=== PATIENT | female | born 1965 | race Caucasian/White ===

== ENCOUNTER 2019-01-30 19:41 | Emergency (ER) | payer SELFPAY ==
[2019-01-30] MEDS ORDERED: Alum Hydrox/Mag Hydrox/Simeth 30 ML, Lidocaine 2% 15 ML PO STA ×2 (19:46)
[2019-01-30] MEDS ORDERED: Ondansetron 4 MG/2 ML SDV IVPUSH ONE (19:47)
[2019-01-30] MEDS ORDERED: HYDROmorphone 0.5 MG/0.5 ML Syringe IVPUSH ONE (19:47)
[2019-01-30] MEDS ORDERED: Aspirin 81 MG Tab.Chew PO ONE (19:50)
--- NOTE | 2019-01-30 19:57 | EDM.PDOC ---
ED HPI GENERAL MEDICAL PROBLEM - General Chief Complaint: Cardiovascular Problem Stated Complaint: [facility] Time Seen by Provider: 01/30/19 19:44 Source of Information: Reports: Patient, EMS History Limitations: Reports: No Limitations - History of Present Illness INITIAL COMMENTS - FREE TEXT/NARRATIVE: Report from EMS in the field was that the patient was likely having a STEMI, with ST elevations in multiple leads, in and out of consciousness, and they could not get a blood pressure. Upon arrival to the ED, EMS informed me that the patient likely developed chest pain about 2 hours prior, that she had collapsed on the bathroom floor, where she was found by her , and where she was still lying when they arrived. Initial oxygen saturation was 94-95% on room air, but they placed a nonrebreather mask. They were unable to get a blood pressure initially, but her blood pressure was 56/P en route, and 98/P just prior to arrival to the ED. 2 IVs were placed, and she was given IV fluid. They did not give aspirin, because she does not have teeth him a and they did not give nitroglycerin, because there ECG indicated an inferior wall MS. They did not give fentanyl due to the patient's low blood pressure. Upon arrival to the ED, the patient was awake, but appeared anxious. Her initial BP was 135/106, with a HR of 84. The nonrebreather mask was removed, and her oxygen saturation remained at 100%. She reported a "heavy" pain in her epigastrium. She stated that she had had similar pain in 2014, while in [place], and was told that she had had a "small heart attack", based on an ECG and a heart enzyme, but that she refused to undergo a coronary angiogram, citing lack of insurance. She states that she has a history of hypertension, but does not take any medication for it. She denies any other chronic medical problems. She is a committed smoker. No recent illnesses. The patient does not have a PCP. She did not receive an influenza vaccine this season. Treatments ENROBER TENDER: Reports: EKG, Oxygen Middle Chest Pain Score (Numeric/FACES): 10 - Related Data Allergies Allergy/AdvReac Type Severity Reaction Status Date / Time Penicillins Allergy Swelling Verified 01/30/19 19:48 Past Medical History Cardiovascular History: Reports: CAD, Hypertension (untreated), [place] (2015) Endocrine/Metabolic History: Reports: Obesity/BMI 30+ - Past Surgical History HEENT Surgical History: Reports: Oral Surgery (Dental extractions) GI Surgical History: Reports: Appendectomy Female Surgical History: Reports: Hysterectomy (complete) Musculoskeletal Surgical History: Reports: Other (See Below) (Right thumb repair ) Social & Family History - Tobacco Use Smoking Status *Q: Current Every Day Smoker Years of Tobacco use: 37 Packs/Tins Daily: 1 Packs/Tins Daily Comment: Down from > 1.5 ppd - Alcohol Use Alcohol Use History: No - Recreational Drug Use Recreational Drug Use: No - Living Situation & Occupation Living situation: Reports: , with Spouse Occupation: Unemployed ED ROS GENERAL - Review of Systems Review Of Systems: Comprehensive ROS is negative, except as noted in HPI. ED EXAM, GENERAL - Physical Exam Exam: See Below Exam Limited By: No Limitations General Appearance: Alert, WD/WN, Anxious Eye Exam: Bilateral Eye: EOMI, Normal Inspection Ears: Normal External Exam, Hearing Grossly Normal Nose: Normal Inspection Throat/Mouth: Normal Inspection, Normal Lips, Normal Voice, No Airway Compromise Head: Atraumatic, Normocephalic Neck: Normal Inspection, Full Range of Motion Respiratory/Chest: No Respiratory Distress, Lungs Clear, Normal Breath Sounds, No Accessory Muscle Use, Chest Non-Tender (including in the epuigastrium) Cardiovascular: Normal Peripheral Pulses, Regular Rate, Rhythm, No Edema, No Gallop, No JVD, No Murmur, No Rub Peripheral Pulses: 4+: Radial (L), Radial (R) GI/Abdominal: Normal Bowel Sounds, Soft, Non-Tender, No Organomegaly, No Distention, No Abnormal Bruit, No Mass (Female) Exam: Deferred Rectal (Female) Exam: Deferred Back Exam: Normal Inspection, Full Range of Motion, NT Extremities: Normal Inspection, Normal Range of Motion, No Pedal Edema, Normal Capillary Refill Neurological: Alert, Oriented, Normal Cognition, No Motor/Sensory Deficits Psychiatric: Anxious Skin Exam: Warm, Dry, Intact, Normal Color, No Rash EKG INTERPRETATION EKG Date: 01/30/19 Time: 19:37 Rhythm: NSR Rate (Beats/Min): 80 [place]: Normal P-Wave: Present QRS: Normal ST-T: Normal QT: Prolonged (QTc 545 ms) Comparison: NA - No Prior EKG Course - Vital Signs Last Recorded V/S: Last Vital Signs Temp 36.2 C 01/30/19 19:42 Pulse 74 01/30/19 22:32 Resp 16 01/30/19 19:42 BP 154/67 H 01/30/19 22:32 Pulse Ox 100 01/30/19 19:42 - Orders/Labs/Meds Orders: Active Orders 24 hr Category Date Time Status EKG Documentation Completion [RC] STAT Care 01/30/19 19:45 Active Ang Chest [CT] Stat Exams 01/30/19 21:18 Taken Chest 1V Frontal [CR] Stat Exams 01/30/19 19:45 Taken Heparin Sodium/D5W [Heparin 25,000 Units in D5W 500 ML] Med 01/30/19 20:45 Active 25,000 units in 500 ml IV TITRATE Sodium Chloride 0.9% [Normal Saline] 1,000 ml Med 01/30/19 21:30 Active IV ASDIRECTED Medication Orders Heparin Sodium/Dextrose (Heparin 25,000 Units In D5w 500 Ml) 25,000 units in 500 mls @ 17.4 mls/hr IV TITRATE MARII; Protocol Last Admin: 01/30/19 20:54 Dose: 870 units/hr, 17.4 mls/hr Sodium Chloride (Normal Saline) 1,000 mls @ 100 mls/hr IV ASDIRECTED MARII Last Admin: 01/30/19 21:26 Dose: 100 mls/hr Labs: Laboratory Tests 01/30/19 01/30/19 01/30/19 Range/Units 19:54 19:54 19:54 WBC 20.46 H (3.98-10.04) K/mm3 RBC 3.78 L (3.98-5.22) M/mm3 Hgb 12.2 (11.2-15.7) gm/dl Hct 38.2 (34.1-44.9) % MCV 101.1 H (79.4-94.8) fl MCH 32.3 H (25.6-32.2) pg MCHC 31.9 L (32.2-35.5) g/dl RDW Std Deviation 50.8 H (36.4-46.3) fL Plt Count 473 H (182-369) K/mm3 MPV 7.9 L (9.4-12.3) fl Neutrophils % (Manual) 74 H (40-60) % Band Neutrophils % 1 (0-10) % Lymphocytes % (Manual) 22 (20-40) % Atypical Lymphs % 0 % Monocytes % (Manual) 3 (2-10) % Eosinophils % (Manual) 0 L (0.7-5.8) % Basophils % (Manual) 0 L (0.1-1.2) Platelet Estimate Adequate Anisocytosis 1+ slight Macrocytosis 1+ slight RBC Morph Comment Not Reportable D-Dimer, Quantitative (0.19-0.50) mg/L Sodium 139 (136-145) mEq/L Potassium 3.3 L (3.5-5.1) mEq/L Chloride 104 (98-107) mEq/L Carbon Dioxide 19 L (21-32) mEq/L Anion Gap 19.3 H (5-15) BUN 10 (7-18) mg/dL Creatinine 1.0 (0.55-1.02) mg/dL Est Cr Clr Drug Dosing 46.19 mL/min Estimated GFR (MDRD) 58 (>60) mL/min BUN/Creatinine Ratio 10.0 L (14-18) Glucose 132 H (74-106) mg/dL Calcium 8.8 (8.5-10.1) mg/dL Magnesium 1.9 (1.8-2.4) mg/dl Total Bilirubin 0.1 L (0.2-1.0) mg/dL AST 41 H (15-37) U/L ALT 37 (14-59) U/L Alkaline Phosphatase 115 (46-116) U/L Troponin I 2.305 H* (0.00-0.056) ng/mL NT-Pro-B Natriuret Pep 286 H (0-125) pg/mL Total Protein 7.9 (6.4-8.2) g/dl Albumin 3.8 (3.4-5.0) g/dl Globulin 4.1 gm/dL Albumin/Globulin Ratio 0.9 L (1-2) Lipase 124 (73-393) U/L 01/30/19 Range/Units 20:35 WBC (3.98-10.04) K/mm3 RBC (3.98-5.22) M/mm3 Hgb (11.2-15.7) gm/dl Hct (34.1-44.9) % MCV (79.4-94.8) fl MCH (25.6-32.2) pg MCHC (32.2-35.5) g/dl RDW Std Deviation (36.4-46.3) fL Plt Count (182-369) K/mm3 MPV (9.4-12.3) fl Neutrophils % (Manual) (40-60) % Band Neutrophils % (0-10) % Lymphocytes % (Manual) (20-40) % Atypical Lymphs % % Monocytes % (Manual) (2-10) % Eosinophils % (Manual) (0.7-5.8) % Basophils % (Manual) (0.1-1.2) Platelet Estimate Anisocytosis Macrocytosis RBC Morph Comment D-Dimer, Quantitative 3.54 H (0.19-0.50) mg/L Sodium (136-145) mEq/L Potassium (3.5-5.1) mEq/L Chloride (98-107) mEq/L Carbon Dioxide (21-32) mEq/L Anion Gap (5-15) BUN (7-18) mg/dL Creatinine (0.55-1.02) mg/dL Est Cr Clr Drug Dosing mL/min Estimated GFR (MDRD) (>60) mL/min BUN/Creatinine Ratio (14-18) Glucose (74-106) mg/dL Calcium (8.5-10.1) mg/dL Magnesium (1.8-2.4) mg/dl Total Bilirubin (0.2-1.0) mg/dL AST (15-37) U/L ALT (14-59) U/L Alkaline Phosphatase (46-116) U/L Troponin I (0.00-0.056) ng/mL NT-Pro-B Natriuret Pep (0-125) pg/mL Total Protein (6.4-8.2) g/dl Albumin (3.4-5.0) g/dl Globulin gm/dL Albumin/Globulin Ratio (1-2) Lipase (73-393) U/L Meds: Medications Generic Name Dose Route Start Last Admin Trade Name Freq PRN Reason Stop Dose Admin Heparin Sodium/Dextrose 25,000 units in 500 mls @ 17.4 mls/hr 01/30/19 20:45 01/30/19 20:54 Heparin 25,000 Units In D5w 500 Ml IV 870 units/hr TITRATE MARII 17.4 mls/hr Administration Protocol 870 UNITS/HR Sodium Chloride 1,000 mls @ 100 mls/hr 01/30/19 21:30 01/30/19 21:26 Normal Saline IV 100 mls/hr ASDIRECTED MARII Administration Discontinued Medications Generic Name Dose Route Start Last Admin Trade Name Vinod PRN Reason Stop Dose Admin Aspirin 324 mg 01/30/19 19:50 01/30/19 19:52 Aspirin PO 01/30/19 19:51 324 mg ONETIME ONE Administration Al Hydroxide/Mg Hydroxide 30 0 ml 01/30/19 19:46 01/30/19 19:51 ml/ Lidocaine HCl 15 ml PO 01/30/19 19:47 45 ml ONETIME STA Administration Heparin Sodium (Porcine) 4,000 units 01/30/19 20:40 01/30/19 20:53 Heparin Sodium IVPUSH 01/30/19 20:41 4,000 units .BOLUS STA Administration Hydromorphone HCl 0.5 mg 01/30/19 19:47 01/30/19 20:05 Dilaudid IVPUSH 01/30/19 19:48 0.5 mg ONETIME ONE Administration Sodium Chloride 100 mls @ 4 mls/sec 01/30/19 21:48 01/30/19 22:30 Normal Saline IV 01/30/19 21:49 4 mls/sec ONETIME ONE Administration Iopamidol 100 ml 01/30/19 21:48 01/30/19 22:30 Isovue-370 (76%) IVPUSH 01/30/19 21:49 100 ml ONETIME ONE Administration Metoprolol Tartrate 5 mg 01/30/19 20:39 01/30/19 20:51 Lopressor IVPUSH 01/30/19 20:40 5 mg ONETIME ONE Administration Metoprolol Tartrate 5 mg 01/30/19 21:10 01/30/19 21:16 Lopressor IVPUSH 01/30/19 21:11 5 mg ONETIME ONE Administration Metoprolol Tartrate 5 mg 01/30/19 22:24 01/30/19 22:32 Lopressor IVPUSH 01/30/19 22:25 5 mg ONETIME ONE Administration Ondansetron HCl 4 mg 01/30/19 19:47 01/30/19 19:51 Zofran IVPUSH 01/30/19 19:48 4 mg ONETIME ONE Administration - Re-Assessments/Exams Free Text/Narrative Re-Assessment/Exam: 01/30/19 20:36 The etiology of the patient's pain is unclear. She is indicating pain in her epigastric area, therefore I ordered a GI cocktail, to be followed by IV Dilaudid and IV Zofran. I am told that the GI cocktail had no effect on the patient's pain. The patient's ECG here in the ED does not show evidence for an acute MS, however , I was just presented with the ECG tracings from EMS, which do in fact show ST elevations in the inferior leads. 01/30/19 20:38 Notified that the patient's troponin is elevated at 2.305, consistent with a recent MS. The patient already received 4 baby aspirin; I will order 5 mg of IV Lopressor and start a heparin bolus + drip per non-STEMI protocol. Portable chest radiograph appears to be grossly normal. The cardiac silhouette is within normal limits. No pulmonary vascular congestion. No pleural effusions seen on this AP view. No focal infiltrate. No pneumothorax. Formal read per the Radiologist pending. 01/30/19 20:50 Test results discussed with the patient and her . She looks much better, and states that she feels much better, as well. I would like to transfer the patient to [place] for further evaluation. They have no preference of [facility] versus [facility]. 01/30/19 21:07 Case discussed with Isabella at [facility] at 20:53. The portable chest XRay image was pushed while I was discussing the case with Isabella. Case then discussed with Dr. Richardson, Hospitalist at [facility], at 20: 55. She wanted the [employer] involved. Dr. Washington, [facility] at [facility], added to the conversation at 21: 00. He agreed with the Lopressor and heparin. He suggested adding a nitroglycerin drip, if needed to control the patient's blood pressure. Since the patient is pain-free, he did not expect that she will go to the crime laboratory analyst tonight, therefore he was okay with the patient being transferred by ground ambulance. I would like to give the patient 3 doses of Lopressor 5 mg, to see if that controls patient's blood pressure, prior to starting a nitroglycerin drip. 01/30/19 21:20 The patient's D-dimer has returned substantially elevated at 3.54. It is possible that the patient suffered a PE, causing her earlier symptoms, and an elevated troponin due to right heart strain. I believe it is important that we rule out a PE prior to transferring her to [place], therefore I have ordered a stat CT angiogram of the chest, along with IV fluid. 01/30/19 22:34 CT angiogram of the chest is read by [facility] as: 1. No evidence for pulmonary emboli 2. Incidental note was made of a 2.2 centimeter left adrenal adenoma Following 3 doses of IV Lopressor 5 mg, the patient's most recent BP is 154/67, with a HR of 74. The patient can be transported by ground ambulance without a nitroglycerin drip. Departure - Departure Time of Disposition: 21:09 Disposition: DC/Tfer to Acute Hospital 02 Condition: Fair Clinical Impression: Non-STEMI (non-ST elevated myocardial infarction) - Discharge Information *PRESCRIPTION DRUG MONITORING PROGRAM REVIEWED*: Not Applicable *COPY OF PRESCRIPTION DRUG MONITORING REPORT IN PATIENT LEIGH: Not Applicable Referrals: PCP,Unknown [Ordering Only Provider] - Forms: ED Department Discharge - My Orders Last 24 Hours: My Active Orders 01/30/19 19:45 EKG Documentation Completion [RC] STAT Chest 1V Frontal [CR] Stat 01/30/19 20:45 Heparin Sodium/D5W [Heparin 25,000 Units in D5W 500 ML] 25,000 units in 500 ml IV TITRATE 01/30/19 21:18 Ang Chest [CT] Stat 01/30/19 21:30 Sodium Chloride 0.9% [Normal Saline] 1,000 ml IV ASDIRECTED - Assessment/Plan Last 24 Hours: My Active Orders 01/30/19 19:45 EKG Documentation Completion [RC] STAT Chest 1V Frontal [CR] Stat 01/30/19 20:45 Heparin Sodium/D5W [Heparin 25,000 Units in D5W 500 ML] 25,000 units in 500 ml IV TITRATE 01/30/19 21:18 Ang Chest [CT] Stat 01/30/19 21:30 Sodium Chloride 0.9% [Normal Saline] 1,000 ml IV ASDIRECTED
[2019-01-30] MEDS ORDERED: Metoprolol Tartrate 5 MG/5 ML SDV IVPUSH ONE ×3 (20:39→22:24)
[2019-01-30] MEDS ORDERED: Heparin Sodium 5,000 Units/ML Vial IVPUSH STA (20:40)
[2019-01-30] MEDS ORDERED: Heparin Sodium/D5W 25,000 UNITS/500 ML BAG IV SCH (20:45)
[2019-01-30] MEDS ORDERED: Sodium Chloride 0.9% 1,000 ML IV SCH (21:30)
[2019-01-30] MEDS ORDERED: Sodium Chloride 0.9% 100 ML IV ONE (21:48)
[2019-01-30] MEDS ORDERED: Iopamidol 755 Mg/ML 100 ML Bottle IVPUSH ONE (21:48)
--- NOTE | 2019-01-31 08:56 | CR ---
Chest: Portable view of the chest was obtained. Comparison: Prior chest x-ray is not available. Heart is felt to be slightly enlarged although is accentuated from portable technique. Pulmonary vessels are slightly congested which are asymmetrically worse on the right side. No alveolar type densities are seen. Bony structures are grossly intact. Impression: 1. Findings suggestive of mild CHF. PA and lateral view would confirm if clinically needed. Diagnostic code #3 This report was dictated in [place] Standard Time
--- NOTE | 2019-01-31 08:57 | CT ---
CT chest Technique: Multiple axial sections through the chest were obtained. Intravenous contrast was utilized. Study has been performed as a pulmonary angiogram protocol. Comparison: No prior CT chest, chest x-ray performed earlier on same day (7:47 PM). Findings: Pulmonary arteries are well opacified. No filling defects are seen to indicate pulmonary embolism. Aorta shows no aneurysm. Mediastinum shows no adenopathy. Prominent atherosclerotic change is noted within the coronary arteries. No pericardial thickening is seen. Low density lesion is noted within the left adrenal gland measuring approximately 2.0 cm which is felt compatible with an incidental adrenal adenoma. Other visualized upper abdominal structures show no discrete abnormality other than atherosclerotic change within the abdominal aorta. Lungs are clear. No acute parenchymal change is seen. No pleural effusion is seen. Bone window settings were reviewed which show minimal degenerative change scattered within the spine. Impression: 1. No findings of pulmonary embolism. 2. Prominent atherosclerotic change within the coronary arteries. 3. Other findings as noted above. Nothing acute is otherwise seen. Diagnostic code #3 This report was dictated in [place] Standard Time I agree with preliminary report from [facility], finalized on 01/30/19, 11:24 PM Central Time
== END 2019-01-30 23:02 ==
LOC: JD.ED 19:41
DX: I21.4 Non-ST elevation (NSTEMI) myocardial infarction (principal); I25.10 Atherosclerotic heart disease of native coronary artery without angina pectoris; I10 Essential (primary) hypertension; F17.210 Nicotine dependence, cigarettes, uncomplicated; E66.9 Obesity, unspecified; Z68.31 Body mass index [BMI] 31.0-31.9, adult
CPT/HCPCS: 36415; 71045; 71275; 80053; 83690; 83735; 83880; 84484; 85007; 85027; 85379; 93005; 96365; 96366; 96375; 96376; 99285; A9270; J1170; J1644; J2405; J3490; J7030; J7050; Q9967; 93010

== ENCOUNTER 2019-02-04 06:56 | Emergency (ER) | payer SELFPAY ==
[2019-02-04] MEDS ORDERED: Oxymetazoline 0.05% Nasal Spray 30 ML Bottle NAS ONE (07:25)
--- NOTE | 2019-02-04 07:43 | EDM.PDOC ---
ED HPI GENERAL MEDICAL PROBLEM - General Chief Complaint: ENT Problem Stated Complaint: NOSEBLEED Time Seen by Provider: 02/04/19 07:34 Source of Information: Reports: Patient History Limitations: Reports: No Limitations - History of Present Illness INITIAL COMMENTS - FREE TEXT/NARRATIVE: Patient is a 53-year-old female who presents with complaints of a left-sided epistaxis that started at approximately 2:30 this morning. She states that the bleeding will slow down intermittently but that she passes large clots. Patient was recently started on Effient and aspirin for a stent that was placed. She is also on metoprolol 12.5mg BID and Lisinopril 5mg QD for hypertension. Patient denies history of bleeding disorders. - Related Data Allergies Allergy/AdvReac Type Severity Reaction Status Date / Time Penicillins Allergy Swelling Verified 02/04/19 07:46 Home Meds: Home Meds Aspirin [Ecotrin EC] 81 mg PO DAILY 02/04/19 [History] Cyanocobalamin (Vitamin B-12) [Vitamin B-12] 1 tab PO DAILY 02/04/19 [History] Lisinopril [Prinivil] 5 mg PO DAILY 02/04/19 [History] Metoprolol Tartrate 12.5 mg PO BID 02/04/19 [History] Prasugrel HCl [Effient] 10 mg PO DAILY 02/04/19 [History] atorvaSTATin Calcium [Lipitor] 40 mg PO DAILY 02/04/19 [History] Past Medical History Cardiovascular History: Reports: CAD, Hypertension (untreated), [place] (2015) Endocrine/Metabolic History: Reports: Obesity/BMI 30+ - Past Surgical History HEENT Surgical History: Reports: Oral Surgery (Dental extractions) GI Surgical History: Reports: Appendectomy Female Surgical History: Reports: Hysterectomy (complete) Musculoskeletal Surgical History: Reports: Other (See Below) (Right thumb repair ) Social & Family History - Caffeine Use Caffeine Use: Reports: Soda - Living Situation & Occupation Living situation: Reports: , with Spouse Occupation: Unemployed ED ROS ENT - Review of Systems Review Of Systems: See Below Constitutional: Reports: No Symptoms HEENT: Reports: Nosebleed Respiratory: Reports: No Symptoms Cardiovascular: Reports: No Symptoms Endocrine: Reports: No Symptoms GI/Abdominal: Reports: No Symptoms : Reports: No Symptoms Musculoskeletal: Reports: No Symptoms Skin: Reports: No Symptoms Neurological: Reports: No Symptoms Psychiatric: Reports: No Symptoms Hematologic/Lymphatic: Reports: No Symptoms Immunologic: Reports: No Symptoms ED EXAM, ENT - Physical Exam Exam: See Below Exam Limited By: No Limitations General Appearance: Alert, WD/WN, No Apparent Distress Nose: Active Bleeding (left nare) Respiratory/Chest: No Respiratory Distress, Lungs Clear, Normal Breath Sounds, Chest Non-Tender Cardiovascular: Normal Peripheral Pulses, Regular Rate, Rhythm, No Edema, No Murmur Neurological: Alert, Oriented, Normal Cognition Psychiatric: Normal Affect, Normal Mood Skin: Warm, Dry, Intact, Normal Color, No Rash Course - Vital Signs Last Recorded V/S: Last Vital Signs Temp 97.5 F 02/04/19 07:35 Pulse 94 02/04/19 07:35 Resp 13 02/04/19 07:35 BP 221/91 H 02/04/19 07:35 Pulse Ox 97 02/04/19 07:35 - Orders/Labs/Meds Meds: Medications Discontinued Medications Generic Name Dose Route Start Last Admin Trade Name Freq PRN Reason Stop Dose Admin Oxymetazoline HCl 1 ml 02/04/19 07:25 02/04/19 07:35 Nasal Decongestant Maskell HENOK 02/04/19 07:26 2 inhalation ONETIME ONE Administration - Re-Assessments/Exams Free Text/Narrative Re-Assessment/Exam: Patient is a 53-year-old female who presents with complaints of left-sided epistaxis that started about 2:30 this morning. On arrival to the ER it is still bleeding scantly. Of note patient's blood pressure significantly elevated this morning to 221/91. I have ordered Afrin's spray for the left nostril. Patient did also bring her home blood pressure medications which is lisinopril 5 mg and metoprolol 12.5 mg. She has not taken these at this morning so I did have her take her home medications. I will allow these medications some time to work and then reassess before ordering additional blood pressure medications. 02/04/19 08:00 Was able to locate the area of bleeding to the left anterior septum. Cauterization was performed with silver nitrate and bleeding had subsided. I will have the patient stay in the ER for at least 30 minutes to ensure that the bleeding does not resume. Blood pressure at this time has come down to 175/82 which is far less concerning than the previous reading. 02/04/19 08:30 Bleeding has not recurred thus far. I will discharge the patient home. Discharge instructions as noted. Departure - Departure Time of Disposition: 08:30 Disposition: Home, Self-Care 01 Condition: Fair Clinical Impression: Epistaxis - Discharge Information *PRESCRIPTION DRUG MONITORING PROGRAM REVIEWED*: No *COPY OF PRESCRIPTION DRUG MONITORING REPORT IN PATIENT LEIGH: No Instructions: Nosebleed, Adult Referrals: Dilshad Washington MD [Primary Care Provider] - Forms: ED Department Discharge Additional Instructions: You were seen in the emergency Department today for a left-sided nosebleed. Afrin was used to slow the bleed and the area was cauterized with silver nitrate. Bleeding did stop in the ER. You will be sent home with a bottle of Afrin. If your nose should start bleeding again, spray a few sprays of that into the nostril, lean forward, and hold pressure. If bleeding does not stop within 30 minutes, you should return to the emergency department. As we discussed, your blood pressure was quite elevated when you initially arrived this morning. We would recommend that you obtain a home blood pressure machine and monitor to your blood pressures, especially prior to taking your medications in the morning and in the evening. Keep a log of these readings and take them to your primary care provider as you may need medication adjustment to keep your blood pressure in the desirable range. As always, if you experience any new or worsening symptoms please do not hesitate to return to the emergency department. Sepsis Event Note - Focused Exam Vital Signs: Vital Signs Temp Pulse Resp BP Pulse Ox 02/04/19 07:35 97.5 F 94 13 221/91 H 97 Date Exam was Performed: 02/04/19 Time Exam was Performed: 08:51
== END 2019-02-04 09:13 | disposition home or self-care (01) ==
LOC: JD.ED 06:56
DX: R04.0 Epistaxis (principal); I25.10 Atherosclerotic heart disease of native coronary artery without angina pectoris; I10 Essential (primary) hypertension; I25.2 Old myocardial infarction; E66.9 Obesity, unspecified; Z88.0 Allergy status to penicillin; Z79.82 Long term (current) use of aspirin; Z68.30 Body mass index [BMI] 30.0-30.9, adult; Z79.899 Other long term (current) drug therapy
CPT/HCPCS: 30901; 99283; A9270; 99282

== ENCOUNTER 2019-02-06 17:14 | Emergency (ER) | payer SELFPAY ==
[2019-02-06] MEDS ORDERED: Aspirin 81 MG Tab.Chew PO ONE (18:02)
[2019-02-06] MEDS ORDERED: fentaNYL 100 MCG/2 ML SDV IVPUSH ONE (18:02)
[2019-02-06] MEDS ORDERED: Metoclopramide 10 MG/2 ML SDV IVPUSH ONE (18:03)
--- NOTE | 2019-02-06 18:06 | EDM.PDOC ---
<Lance Cuevas - Last Filed: 02/06/19 21:43> ED HPI GENERAL MEDICAL PROBLEM - General Chief Complaint: Chest Pain Stated Complaint: CHEST PAIN Time Seen by Provider: 02/06/19 18:01 - Related Data Allergies Allergy/AdvReac Type Severity Reaction Status Date / Time Penicillins Allergy Swelling Verified 02/06/19 17:28 Home Meds: Home Meds Aspirin [Ecotrin EC] 81 mg PO DAILY 02/04/19 [History] Cyanocobalamin (Vitamin B-12) [Vitamin B-12] 1 tab PO DAILY 02/04/19 [History] Metoprolol Tartrate 12.5 mg PO BID 02/04/19 [History] Prasugrel HCl [Effient] 10 mg PO DAILY 02/04/19 [History] atorvaSTATin Calcium [Lipitor] 40 mg PO DAILY 02/04/19 [History] lisinopriL [Prinivil] 5 mg PO DAILY 02/04/19 [History] Nitroglycerin 0.4 mg SL ASDIRECTED PRN 02/06/19 [History] Course - Vital Signs Last Recorded V/S: Last Vital Signs Temp 36.3 C 02/06/19 17:24 Pulse 75 02/06/19 17:24 Resp 16 02/06/19 17:24 BP 152/77 H 02/06/19 17:24 Pulse Ox 100 02/06/19 17:24 - Orders/Labs/Meds Orders: Active Orders 24 hr Category Date Time Status EKG 12 Lead [EKG Documentation Completion] [RC] STAT Care 02/06/19 17:34 Active Chest 1V Frontal [CR] Stat Exams 02/06/19 18:03 Taken Labs: Laboratory Tests 02/06/19 02/06/19 02/06/19 Range/Units 17:45 17:45 17:45 WBC 15.83 H (3.98-10.04) K/mm3 RBC 2.86 L (3.98-5.22) M/mm3 Hgb 9.2 L D (11.2-15.7) gm/dl Hct 29.6 L (34.1-44.9) % MCV 103.5 H (79.4-94.8) fl MCH 32.2 (25.6-32.2) pg MCHC 31.1 L (32.2-35.5) g/dl RDW Std Deviation 49.5 H (36.4-46.3) fL Plt Count 633 H D (182-369) K/mm3 MPV 8.3 L (9.4-12.3) fl Neut % (Auto) 60.8 (34.0-71.1) % Lymph % (Auto) 30.8 (19.3-51.7) % [place] % (Auto) 5.3 (4.7-12.5) % Eos % (Auto) 2.4 (0.7-5.8) Baso % (Auto) 0.4 (0.1-1.2) % Neut # (Auto) 9.62 H (1.56-6.13) K/mm3 Lymph # (Auto) 4.88 H (1.18-3.74) K/mm3 [place] # (Auto) 0.84 H (0.24-0.36) K/mm3 Eos # (Auto) 0.38 H (0.04-0.36) K/mm3 Baso # (Auto) 0.07 (0.01-0.08) K/mm3 Manual Slide Review Abnormal smear PT 10.6 (9.7-12.0) SECONDS INR 0.97 APTT 26 (22-31) SECONDS Sodium 142 (136-145) mEq/L Potassium 3.7 (3.5-5.1) mEq/L Chloride 107 (98-107) mEq/L Carbon Dioxide 21 (21-32) mEq/L Anion Gap 17.7 H (5-15) BUN 12 (7-18) mg/dL Creatinine 1.1 H (0.55-1.02) mg/dL Est Cr Clr Drug Dosing 42.00 mL/min Estimated GFR (MDRD) 52 (>60) mL/min BUN/Creatinine Ratio 10.9 L (14-18) Glucose 108 H (74-106) mg/dL Calcium 8.8 (8.5-10.1) mg/dL Magnesium 2.1 (1.8-2.4) mg/dl Total Bilirubin 0.2 (0.2-1.0) mg/dL AST 19 (15-37) U/L ALT 33 (14-59) U/L Alkaline Phosphatase 107 (46-116) U/L CK-MB (CK-2) 3.3 (0-3.6) ng/ml Troponin I 0.618 H* (0.00-0.056) ng/mL C-Reactive Protein 2.7 H* (<1.0) mg/dL NT-Pro-B Natriuret Pep (0-125) pg/mL Total Protein 7.8 (6.4-8.2) g/dl Albumin 3.7 (3.4-5.0) g/dl Globulin 4.1 gm/dL Albumin/Globulin Ratio 0.9 L (1-2) 02/06/19 02/06/19 Range/Units 17:45 19:57 WBC (3.98-10.04) K/mm3 RBC (3.98-5.22) M/mm3 Hgb (11.2-15.7) gm/dl Hct (34.1-44.9) % MCV (79.4-94.8) fl MCH (25.6-32.2) pg MCHC (32.2-35.5) g/dl RDW Std Deviation (36.4-46.3) fL Plt Count (182-369) K/mm3 MPV (9.4-12.3) fl Neut % (Auto) (34.0-71.1) % Lymph % (Auto) (19.3-51.7) % [place] % (Auto) (4.7-12.5) % Eos % (Auto) (0.7-5.8) Baso % (Auto) (0.1-1.2) % Neut # (Auto) (1.56-6.13) K/mm3 Lymph # (Auto) (1.18-3.74) K/mm3 [place] # (Auto) (0.24-0.36) K/mm3 Eos # (Auto) (0.04-0.36) K/mm3 Baso # (Auto) (0.01-0.08) K/mm3 Manual Slide Review PT (9.7-12.0) SECONDS INR APTT (22-31) SECONDS Sodium (136-145) mEq/L Potassium (3.5-5.1) mEq/L Chloride (98-107) mEq/L Carbon Dioxide (21-32) mEq/L Anion Gap (5-15) BUN (7-18) mg/dL Creatinine (0.55-1.02) mg/dL Est Cr Clr Drug Dosing mL/min Estimated GFR (MDRD) (>60) mL/min BUN/Creatinine Ratio (14-18) Glucose (74-106) mg/dL Calcium (8.5-10.1) mg/dL Magnesium (1.8-2.4) mg/dl Total Bilirubin (0.2-1.0) mg/dL AST (15-37) U/L ALT (14-59) U/L Alkaline Phosphatase (46-116) U/L CK-MB (CK-2) 2.7 (0-3.6) ng/ml Troponin I 0.577 H* (0.00-0.056) ng/mL C-Reactive Protein (<1.0) mg/dL NT-Pro-B Natriuret Pep 641 H (0-125) pg/mL Total Protein (6.4-8.2) g/dl Albumin (3.4-5.0) g/dl Globulin gm/dL Albumin/Globulin Ratio (1-2) Meds: Medications Discontinued Medications Generic Name Dose Route Start Last Admin Trade Name Freq PRN Reason Stop Dose Admin Aspirin 324 mg 02/06/19 18:02 02/06/19 18:31 Aspirin PO 02/06/19 18:03 324 mg ONETIME ONE Administration Fentanyl 50 mcg 02/06/19 18:02 02/06/19 18:32 Sublimaze IVPUSH 02/06/19 18:03 50 mcg ONETIME ONE Administration Nitroglycerin/Dextrose 25 mg in 250 mls @ 3 mls/hr 02/06/19 18:15 02/06/19 18 :33 Nitroglycerin 25 Mg/D5w 250 Ml IV 10 mcg/min TITRATE MARII 6 mls/hr Administration Protocol 5 MCG/MIN Metoclopramide HCl 7.5 mg 02/06/19 18:03 02/06/19 18:30 Reglan IVPUSH 02/06/19 18:04 7.5 mg ONETIME ONE Administration - Re-Assessments/Exams Free Text/Narrative Re-Assessment/Exam: 02/06/19 21:43 Second troponin came back and is indeed trending down. I discussed situation with Dr. Sandoval on-call for Dr. Washington his recommendation is start Lovenox transfer the patient anticipate re-catheterization in the morning. While I was on the phone the patient and her got up and left. I was able to contact the who said he would take her to [place]. I did stress the importance of coming back here first to be started on blood thinners and to have monitored transfer to [place] we had a poor connection on his cell line and lost secretary receptionist.. I did talk to Dr. Malone in the emergency room at [facility] and informed him he may see the patient. He's has the information. Departure - Departure Time of Disposition: 21:39 Disposition: Eloped 07 Clinical Impression: Chest pain Qualifiers: Ischemic chest pain type: unstable angina pectoris Referrals: Dilshad Washington MD [Primary Care Provider] - Forms: ED Department Discharge Sepsis Event Note - Focused Exam Date Exam was Performed: 02/06/19 Time Exam was Performed: 21:43 - My Orders Last 24 Hours: My Active Orders 02/06/19 17:34 EKG 12 Lead [EKG Documentation Completion] [RC] STAT 02/06/19 18:03 Chest 1V Frontal [CR] Stat - Assessment/Plan Last 24 Hours: My Active Orders 02/06/19 17:34 EKG 12 Lead [EKG Documentation Completion] [RC] STAT 02/06/19 18:03 Chest 1V Frontal [CR] Stat <Jaskaran Weathers - Last Filed: 02/07/19 07:04> ED HPI GENERAL MEDICAL PROBLEM - General Source of Information: Reports: Patient, Family (spouse) History Limitations: Reports: No Limitations - History of Present Illness INITIAL COMMENTS - FREE TEXT/NARRATIVE: 53-year-old female presents to the ED having experienced intermittent central left precordial chest pains rating up with her neck throat left arm and left shoulder blade area since about 10:00 this morning. She denies pains tended to calm and go up until about 3:00 when the pain became intense and constant. She took 2 nitroglycerin tablets about 5 minutes apart and did get partial relief of the discomfort. Currently the pain is rated as 8 out of 10. Of note patient had an acute myocardial infarction with severe hypotension a week ago January 30 [address] was sent to [facility] where she underwent stenting of the right coronary right believe 2 stents. She is on baby aspirin daily and Effient daily. She reports she has not missed any medications. She did have very bad nosebleed over the weekend and had to have cauterization and packing of her left naris. She states it's still trickles a little bit. He currently makes her feel somewhat short of breath. No diaphoresis. No nausea or vomiting. Onset: Today Onset Date: 02/06/19 Duration: Hour(s): (Intermittent chest pain since 10:00 this morning and becoming more constant at 1500 hrs. today.), Getting Worse Location: Reports: Chest Quality: Reports: Ache, Pressure Severity: Moderate Improves with: Reports: Medication (8 out of 10 nitroglycerin 2 taken 5 minutes apart gave her very transient relief of the chest discomfort. He never did go away completely however.) Worsens with: Reports: Movement Context: Denies: Activity, Exercise (Walking into the hospital and outside correlation to make the pain worse.), Lifting, Sick Contact, Trauma, Other Associated Symptoms: Reports: Chest Pain, Cough, Loss of Appetite, Malaise, Shortness of Breath, Weakness. Denies: No Other Symptoms (See history of present illness), Confusion, cough w sputum, Diaphoresis, Fever/Chills, Headaches, Nausea/Vomiting, Rash, Seizure, Syncope Treatments ANESTHESIOLOGY FELLOW: Reports: Other (see below) (Nitroglycerin tablets presumably 0.4 mg 2 taken 5 minutes apart at approximately 1530 hrs. with transient reduction in pain.) Middle Chest Pain Score (Numeric/FACES): 10 Past Medical History Cardiovascular History: Reports: CAD, Hypertension, CT, Stents (2 stents placed last week January 30 after development of an acute STEMI presumably in the inferior wall.) Respiratory History: Reports: None CHANGE MANAGEMENT SPECIALIST History: Reports: None Musculoskeletal History: Reports: None Neurological History: Reports: None Psychiatric History: Reports: None Endocrine/Metabolic History: Reports: Obesity/BMI 30+ Hematologic History: Reports: Anticoagulation Therapy Immunologic History: Reports: None Oncologic (Cancer) History: Reports: None Dermatologic History: Reports: None - Infectious Disease History Infectious Disease History: Reports: None - Past Surgical History HEENT Surgical History: Reports: Oral Surgery Other Cardiovascular Surgeries/Procedures: 2 Stents Placed GI Surgical History: Reports: Appendectomy Female Surgical History: Reports: Hysterectomy Social & Family History - Tobacco Use Smoking Status *Q: Current Every Day Smoker Years of Tobacco use: 30 Packs/Tins Daily: 0.5 - Caffeine Use Caffeine Use: Reports: Soda - Recreational Drug Use Recreational Drug Use: No - Living Situation & Occupation Living situation: Reports: , with Spouse Occupation: Unemployed ED ROS GENERAL - Review of Systems Review Of Systems: See Below Constitutional: Reports: Malaise, Weakness, Fatigue, Decreased Appetite. Denies : Fever, Chills HEENT: Reports: No Symptoms, Nosebleed (Terrible nosebleed on Wednesday morning February 04 controlled with packing and a [place] a and then cauterization with silver nitrate.) Respiratory: Reports: Shortness of Breath, Cough, Sputum. Denies: Wheezing, Pleuritic Chest Pain, Hemoptysis (Occasional brownish sputum production.) Cardiovascular: Reports: Chest Pain (See history of present illness), Blood Pressure Problem, Dyspnea on Exertion. Denies: Claudication, Edema, Lightheadedness, Orthopnea Endocrine: Reports: Fatigue GI/Abdominal: Reports: Decreased Appetite. Denies: Hematochezia : Reports: No Symptoms Musculoskeletal: Reports: No Symptoms Skin: Reports: Bruising Neurological: Reports: No Symptoms Psychiatric: Reports: No Symptoms Hematologic/Lymphatic: Reports: No Symptoms Immunologic: Reports: No Symptoms ED EXAM, GENERAL - Physical Exam Exam: See Below Exam Limited By: No Limitations General Appearance: Alert, WD/WN, Mild Distress, Other (Color is poor. Or sallow in color than she should be. Vital signs show temperature 36.3 rate of 75 and sinus on the monitor. 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 No: Lymphadenopathy (L), Lymphadenopathy (R) Respiratory/Chest: No Respiratory Distress, Lungs Clear, Normal Breath Sounds, No Accessory Muscle Use Cardiovascular: Normal Peripheral Pulses, Regular Rate, Rhythm, No Edema, No Gallop, No Murmur, No Rub Peripheral Pulses: 2+: Posterior Tibial (L), Posterior Tibial (R), Dorsalis Pedis (L), Dorsalis Pedis (R) GI/Abdominal: Normal Bowel Sounds, Soft, Non-Tender, No Organomegaly, No Abnormal Bruit, No Mass, Pelvis Stable, Other (Previous total donor hysterectomy with retention of the ovaries.) Back Exam: Normal Inspection, Full Range of Motion. No: CVA Tenderness (L), CVA Tenderness (R) Extremities: Normal Inspection, Normal Range of Motion, Non-Tender Neurological: Alert, Oriented, CN II-XII Intact, Normal Cognition, No Motor/ Sensory Deficits Psychiatric: Anxious Skin Exam: Warm (Mildly anxious.), Dry, Intact, Pallor (Pallor/sallow in color.) . No: Normal Color EKG INTERPRETATION EKG Date: 02/06/19 Time: 17:34 Rhythm: NSR Rate (Beats/Min): 75 Patterson: LAD-Left Patterson Deviation () P-Wave: Present QRS: Other (Q waves V1 and are as our prime wave in V2 and possibly V3. Probably a normal variant pattern. However was not present on ECG done January 30. Complete right bundle branch block. There are Q waves in leads 3 and aVF compatible with inferior wall myocardial infarction) ST-T: Other (There is T-wave flattening in V4 and inversion V5 and V6. T-wave flattening in leads 1 and aVL as well.) QT: Prolonged (Borderline prolonged) EKG Interpretation Comments: Abnormal ECG Course - Orders/Labs/Meds Labs: Laboratory Tests 02/06/19 02/06/19 02/06/19 Range/Units 17:45 17:45 17:45 WBC 15.83 H (3.98-10.04) K/mm3 RBC 2.86 L (3.98-5.22) M/mm3 Hgb 9.2 L D (11.2-15.7) gm/dl Hct 29.6 L (34.1-44.9) % MCV 103.5 H (79.4-94.8) fl MCH 32.2 (25.6-32.2) pg MCHC 31.1 L (32.2-35.5) g/dl RDW Std Deviation 49.5 H (36.4-46.3) fL Plt Count 633 H D (182-369) K/mm3 MPV 8.3 L (9.4-12.3) fl Neut % (Auto) 60.8 (34.0-71.1) % Lymph % (Auto) 30.8 (19.3-51.7) % [place] % (Auto) 5.3 (4.7-12.5) % Eos % (Auto) 2.4 (0.7-5.8) Baso % (Auto) 0.4 (0.1-1.2) % Neut # (Auto) 9.62 H (1.56-6.13) K/mm3 Lymph # (Auto) 4.88 H (1.18-3.74) K/mm3 [place] # (Auto) 0.84 H (0.24-0.36) K/mm3 Eos # (Auto) 0.38 H (0.04-0.36) K/mm3 Baso # (Auto) 0.07 (0.01-0.08) K/mm3 Manual Slide Review Abnormal smear PT 10.6 (9.7-12.0) SECONDS INR 0.97 APTT 26 (22-31) SECONDS Sodium 142 (136-145) mEq/L Potassium 3.7 (3.5-5.1) mEq/L Chloride 107 (98-107) mEq/L Carbon Dioxide 21 (21-32) mEq/L Anion Gap 17.7 H (5-15) BUN 12 (7-18) mg/dL Creatinine 1.1 H (0.55-1.02) mg/dL Est Cr Clr Drug Dosing 42.00 mL/min Estimated GFR (MDRD) 52 (>60) mL/min BUN/Creatinine Ratio 10.9 L (14-18) Glucose 108 H (74-106) mg/dL Calcium 8.8 (8.5-10.1) mg/dL Magnesium 2.1 (1.8-2.4) mg/dl Total Bilirubin 0.2 (0.2-1.0) mg/dL AST 19 (15-37) U/L ALT 33 (14-59) U/L Alkaline Phosphatase 107 (46-116) U/L CK-MB (CK-2) 3.3 (0-3.6) ng/ml Troponin I 0.618 H* (0.00-0.056) ng/mL C-Reactive Protein 2.7 H* (<1.0) mg/dL NT-Pro-B Natriuret Pep (0-125) pg/mL Total Protein 7.8 (6.4-8.2) g/dl Albumin 3.7 (3.4-5.0) g/dl Globulin 4.1 gm/dL Albumin/Globulin Ratio 0.9 L (1-2) 02/06/19 02/06/19 Range/Units 17:45 19:57 WBC (3.98-10.04) K/mm3 RBC (3.98-5.22) M/mm3 Hgb (11.2-15.7) gm/dl Hct (34.1-44.9) % MCV (79.4-94.8) fl MCH (25.6-32.2) pg MCHC (32.2-35.5) g/dl RDW Std Deviation (36.4-46.3) fL Plt Count (182-369) K/mm3 MPV (9.4-12.3) fl Neut % (Auto) (34.0-71.1) % Lymph % (Auto) (19.3-51.7) % [place] % (Auto) (4.7-12.5) % Eos % (Auto) (0.7-5.8) Baso % (Auto) (0.1-1.2) % Neut # (Auto) (1.56-6.13) K/mm3 Lymph # (Auto) (1.18-3.74) K/mm3 [place] # (Auto) (0.24-0.36) K/mm3 Eos # (Auto) (0.04-0.36) K/mm3 Baso # (Auto) (0.01-0.08) K/mm3 Manual Slide Review PT (9.7-12.0) SECONDS INR APTT (22-31) SECONDS Sodium (136-145) mEq/L Potassium (3.5-5.1) mEq/L Chloride (98-107) mEq/L Carbon Dioxide (21-32) mEq/L Anion Gap (5-15) BUN (7-18) mg/dL Creatinine (0.55-1.02) mg/dL Est Cr Clr Drug Dosing mL/min Estimated GFR (MDRD) (>60) mL/min BUN/Creatinine Ratio (14-18) Glucose (74-106) mg/dL Calcium (8.5-10.1) mg/dL Magnesium (1.8-2.4) mg/dl Total Bilirubin (0.2-1.0) mg/dL AST (15-37) U/L ALT (14-59) U/L Alkaline Phosphatase (46-116) U/L CK-MB (CK-2) 2.7 (0-3.6) ng/ml Troponin I 0.577 H* (0.00-0.056) ng/mL C-Reactive Protein (<1.0) mg/dL NT-Pro-B Natriuret Pep 641 H (0-125) pg/mL Total Protein (6.4-8.2) g/dl Albumin (3.4-5.0) g/dl Globulin gm/dL Albumin/Globulin Ratio (1-2) Meds: Medications Discontinued Medications Generic Name Dose Route Start Last Admin Trade Name Freq PRN Reason Stop Dose Admin Aspirin 324 mg 02/06/19 18:02 02/06/19 18:31 Aspirin PO 02/06/19 18:03 324 mg ONETIME ONE Administration Fentanyl 50 mcg 02/06/19 18:02 02/06/19 18:32 Sublimaze IVPUSH 02/06/19 18:03 50 mcg ONETIME ONE Administration Nitroglycerin/Dextrose 25 mg in 250 mls @ 3 mls/hr 02/06/19 18:15 02/06/19 18 :33 Nitroglycerin 25 Mg/D5w 250 Ml IV 10 mcg/min TITRATE MARII 6 mls/hr Administration Protocol 5 MCG/MIN Metoclopramide HCl 7.5 mg 02/06/19 18:03 02/06/19 18:30 Reglan IVPUSH 02/06/19 18:04 7.5 mg ONETIME ONE Administration - Radiology Interpretation Free Text/Narrative:: 53-year-old female presents the ED with intermittent central chest pain since about 10:00 this morning that subsequently became constant about 1500 hrs. today. She summoned her home from work and was lying on the couch. As patient had a myocardial infarction with severe hypotension a week ago today and was treated in [place] with stenting 2 presumably in the right coronary artery. She had transient relief of the chest pain with nitroglycerin 2 tablets 5 minutes apart but it's currently 8 out of 10. It is radiating up into her neck throat left back and shoulder blade area and into her upper left arm and down to the elbow. Her current ECG shows some mild ST segment elevation in V1 to V3 and ST segment depression with T-wave inversion V5 V6 and flattening one in aVL. There is evidence of Q waves in leads 3 and aVF compatible with a old inferior wall myocardial infarction. His decreased voltage in the limb leads. Concern certainly apparent for possible recurrence of myocardial infarction and she will be treated as such until we get results of her enzymes since her ECG is nonconclusive. She'll be given 4 baby aspirins chewed. Nitroglycerin drip will be started at 10 mcg/m. She'll be given fentanyl 50 g IV . Also given Reglan 7.5 mg IV for potential nausea relief. Routine labs including cardiac markers and BNP and magnesium levels to be obtained - Re-Assessments/Exams Free Text/Narrative Re-Assessment/Exam: 02/06/19 19:00: Chest x-ray reveals borderline cardiomegaly. Mild diffuse vascular congestion pattern without any pleural effusions. Other pulmonary infiltrates evident. 02/06/19 19:15 White count is elevated at 15.83 with auto differential showing 61% neutrophils. Hemoglobin is low at 9.2 with hematocrit of 29.6. MCV is elevated 103.5. White count is markedly elevated at 633,000. PT is 10.6 with an INR of 0.97 PTT is 26. Sodium 142 with a potassium of 3.7. Chloride 107 with a bicarbonate of 21. Anion gap is mildly elevated at 17.7. BUN is 12 with a creatinine of 1.1. GFR is 52. Glucose 108 with a calcium of 8.8. Magnesium normal at 2.1. Liver function normal. CK-MB fraction is 3.3 normal troponin I is elevated at 0.618. C-reactive protein was 2.7. BNP 641. Total protein 7.8 with an albumin fraction of 3.7. 02/06/19 19:30: Patient states that she is completely pain-free on current treatment regimen. The plan will be to repeat her CK-MB and troponin at 2000 hrs. which will be 2 hours from the last to make sure that they are not going up. She is in mild heart failure and I'm going to give her Lasix 40 mg IV. Reduce her current nitro drip to 5 g from 10 mcg/m. Dr. Cuevas will take over care as it is now change of shift. He will check on her cardiac markers which should be back by about 2044 hrs. Discussed this plan with the patient and her . Sepsis Event Note - Evaluation Sepsis Screening Result: No Definite Risk - Focused Exam Date Exam was Performed: 02/07/19 Time Exam was Performed: 07:03
[2019-02-06] MEDS ORDERED: Nitroglycerin/D5W 25 MG/250 ML BOTTLE IV SCH (18:15)
--- NOTE | 2019-02-07 10:09 | CR ---
Chest: Portable view of the chest was obtained. Comparison: Prior chest x-ray of 01/30/19. Findings: Heart size and mediastinum are within normal limits for portable technique. Lungs are clear with no acute parenchymal change. Bony structures are grossly intact. Impression: 1. Nothing acute is appreciated on portable chest x-ray. Diagnostic code #1 This report was dictated in [place] Standard Time
== END 2019-02-06 21:41 | disposition left against medical advice (07) ==
LOC: JD.ED 17:14
DX: I25.110 Atherosclerotic heart disease of native coronary artery with unstable angina pectoris (principal); I10 Essential (primary) hypertension; I25.2 Old myocardial infarction; E66.9 Obesity, unspecified; Z68.30 Body mass index [BMI] 30.0-30.9, adult; F17.210 Nicotine dependence, cigarettes, uncomplicated; Z95.0 Presence of cardiac pacemaker; Z79.01 Long term (current) use of anticoagulants; Z88.0 Allergy status to penicillin; Z79.82 Long term (current) use of aspirin; Z79.899 Other long term (current) drug therapy
CPT/HCPCS: 36415; 71045; 80053; 82553; 83735; 83880; 84484; 85025; 85610; 85730; 86140; 93005; 96365; 96366; 96375; 99285; A9270; J2765; J3010; J3490; 93010

== ENCOUNTER 2019-02-20 06:49 | Emergency (ER) | payer SELFPAY ==
[2019-02-20] MEDS ORDERED: Ondansetron 4 MG/2 ML SDV IVPUSH ONE (07:05)
[2019-02-20] MEDS ORDERED: Sodium Chloride 0.9% 10 ML Syringe FLUSH PRN ×2 (07:05→08:03)
[2019-02-20] MEDS ORDERED: Sodium Chloride 0.9% 1,000 ML IV STA (07:05)
[2019-02-20] MEDS ORDERED: HYDROmorphone 1 MG/ML Syringe IVPUSH ONE ×2 (07:07→12:45)
[2019-02-20] MEDS ORDERED: Iopamidol 612 MG/ML 100 ML Bottle IVPUSH ONE (08:03)
[2019-02-20] MEDS ORDERED: Diatrizoate Meglumine/Diatrizoate Sodium 37% 120 ML Bottle PO ONE (08:03)
--- NOTE | 2019-02-20 10:02 | CT ---
CT abdomen and pelvis Technique: Multiple axial sections were obtained from above the dome of the diaphragm inferiorly through the pubic symphysis. Intravenous and oral contrast was utilized. Comparison: No prior abdominal imaging is available. Findings: Visualized lung bases show nothing acute. Liver contains no focal abnormality. Spleen appears within normal limits. Left adrenal nodule is noted. Nodule appears somewhat low in density and most likely represents an adrenal adenoma. Right adrenal gland is unremarkable. Kidneys show symmetric contrast enhancement without hydronephrosis or mass. Aorta and iliac vessels shows atherosclerotic change without aneurysm. No retroperitoneal adenopathy is seen. Pancreas appears normal. No mesenteric abnormalities are seen. No pelvic mass or adenopathy is seen. There is wall thickening being seen within the descending and sigmoid region compatible with a nonspecific colitis. Minimal inflammatory change is seen around this area of bowel wall thickening. No other inflammatory change is seen. No free fluid is seen. Appendix is not visualized. Bone window settings were reviewed which show disc space narrowing and vacuum phenomena within the L5-S1 disc. Delayed images show contrast within the distal ureters and within the bladder. Fat containing left inguinal hernia is seen. Impression: 1. Bowel wall thickening with mild surrounding inflammatory change within the descending and sigmoid colon compatible with nonspecific colitis. 2. Other findings believed to be incidental as noted above. Diagnostic code #3 This report was dictated in [place] Standard Time
[2019-02-20] MEDS ORDERED: HYDROmorphone 0.5 MG/0.5 ML Syringe IVPUSH ONE ×2 (10:14→11:23)
[2019-02-20] MEDS ORDERED: Sodium Chloride 0.9% 250 ML IV SCH (10:30)
--- NOTE | 2019-02-20 11:35 | EDM.PDOC ---
ED HPI GENERAL MEDICAL PROBLEM - General Chief Complaint: Gastrointestinal Problem Stated Complaint: [facility] Time Seen by Provider: 02/20/19 06:56 Source of Information: Reports: Patient History Limitations: Reports: No Limitations - History of Present Illness INITIAL COMMENTS - FREE TEXT/NARRATIVE: The patient presents by [facility] for lower abdominal pain and rectal bleeding. She said this all started yesterday. She noticed some blood in her stool when she wiped and then it has gotten worse where there is gross blood. She also did get some chest pain before arrival. She is on aspirin and effient for an MS she had on January 30. She also went back to [facility] 2 weeks ago because she had another MS and needed stents. She never had a GI bleed before. She did have a hysterctomy in the past. She has no fever, chills , cough, or shortness of breath. She did have chest pain earlier but that is gone now. She has some nausea and vomiting. Onset: Gradual Duration: Day(s): Location: Reports: Abdomen Quality: Reports: Sharp Severity: Moderate Improves with: Reports: None Worsens with: Reports: None Associated Symptoms: Reports: Chest Pain, Nausea/Vomiting. Denies: Cough, Fever /Chills, Headaches, Shortness of Breath Abdomen Pain Score (Numeric/FACES): 10 - Related Data Allergies Allergy/AdvReac Type Severity Reaction Status Date / Time Penicillins Allergy Swelling Verified 02/20/19 06:54 Home Meds: Home Meds Aspirin [Ecotrin EC] 81 mg PO DAILY 02/04/19 [History] Cyanocobalamin (Vitamin B-12) [Vitamin B-12] 1 tab PO DAILY 02/04/19 [History] Metoprolol Tartrate 12.5 mg PO BID 02/04/19 [History] Prasugrel HCl [Effient] 10 mg PO DAILY 02/04/19 [History] atorvaSTATin Calcium [Lipitor] 40 mg PO DAILY 02/04/19 [History] lisinopriL [Prinivil] 5 mg PO DAILY 02/04/19 [History] Nitroglycerin 0.4 mg SL ASDIRECTED PRN 02/06/19 [History] Past Medical History Cardiovascular History: Reports: CAD, Hypertension, MS, Stents Respiratory History: Reports: None [employer] History: Reports: None Musculoskeletal History: Reports: None Neurological History: Reports: None Psychiatric History: Reports: None Endocrine/Metabolic History: Reports: Obesity/BMI 30+ Hematologic History: Reports: Anticoagulation Therapy Immunologic History: Reports: None Oncologic (Cancer) History: Reports: None Dermatologic History: Reports: None - Infectious Disease History Infectious Disease History: Reports: None - Past Surgical History HEENT Surgical History: Reports: Oral Surgery Other Cardiovascular Surgeries/Procedures: 2 Stents Placed GI Surgical History: Reports: Appendectomy Female Surgical History: Reports: Hysterectomy Social & Family History - Tobacco Use Smoking Status *Q: Former Smoker Used Tobacco, but Quit: Yes Month/Year Tobacco Last Used: 02/09 - Caffeine Use Caffeine Use: Reports: Soda - Living Situation & Occupation Living situation: Reports: , with Spouse Occupation: Unemployed ED ROS GENERAL - Review of Systems Review Of Systems: See Below Constitutional: Reports: No Symptoms HEENT: Reports: No Symptoms Respiratory: Reports: No Symptoms Cardiovascular: Reports: Chest Pain Endocrine: Reports: No Symptoms GI/Abdominal: Reports: Abdominal Pain, Bloody Stool, Nausea. Denies: Vomiting : Reports: No Symptoms ED EXAM, GI/ABD - Physical Exam Exam: See Below Exam Limited By: No Limitations General Appearance: Alert, No Apparent Distress Ears: Normal External Exam Nose: Normal Inspection Head: Atraumatic, Normocephalic Neck: Normal Inspection Respiratory/Chest: No Respiratory Distress, Lungs Clear, Normal Breath Sounds Cardiovascular: Regular Rate, Rhythm, No Edema, No Murmur GI/Abdominal Exam: Soft, No Mass, Pelvis Stable, Tender (Moderate tenderness to the left lower abdomen) Course - Vital Signs Last Recorded V/S: Last Vital Signs Temp 97.9 F 02/20/19 10:48 Pulse 106 H 02/20/19 06:54 Resp 20 02/20/19 10:48 BP 160/62 H 02/20/19 10:48 Pulse Ox 92 L 02/20/19 10:48 - Orders/Labs/Meds Orders: Active Orders 24 hr Category Date Time Status EKG Documentation Completion [RC] ASDIRECTED Care 02/20/19 07:13 Active Peripheral IV Care [RC] . DIRECTED Care 02/20/19 07:06 Active PATIENT RETYPE [BBK] Routine Lab 02/20/19 09:39 Ordered RED BLOOD CELLS LP [BBK] Stat Lab 02/20/19 07:33 Results TYPE AND SCREEN [BBK] Stat Lab 02/20/19 07:33 Results UA W/MICROSCOPIC [URIN] Stat Lab 02/20/19 07:05 Ordered Sodium Chloride 0.9% [Normal Saline] 250 ml Med 02/20/19 10:30 Active IV ASDIRECTED Sodium Chloride 0.9% [Saline Flush] Med 02/20/19 07:05 Active 10 ml FLUSH ASDIRECTED PRN Sodium Chloride 0.9% [Saline Flush] Med 02/20/19 08:03 Active 10 ml FLUSH ONETIME PRN ED Antiemetic Medication Reflex [OM.PC] Stat Oth 02/20/19 07:05 Ordered Peripheral IV Insertion Adult [OM.PC] Stat Oth 02/20/19 07:05 Ordered Transfuse Red Blood Cells [COMM] Stat Oth 02/20/19 08:14 Ordered EKG 12 Lead [EK] Stat Ther 02/20/19 07:13 Ordered Medication Orders Sodium Chloride (Normal Saline) 250 mls @ 50 mls/hr IV ASDIRECTED MARII Last Admin: 02/20/19 10:37 Dose: 50 mls/hr Sodium Chloride (Saline Flush) 10 ml FLUSH ASDIRECTED PRN PRN Reason: Keep Vein Open Last Admin: 02/20/19 07:18 Dose: 10 ml Sodium Chloride (Saline Flush) 10 ml FLUSH ONETIME PRN PRN Reason: IV FLUSH Last Admin: 02/20/19 08:53 Dose: 10 ml Labs: Laboratory Tests 02/20/19 02/20/19 02/20/19 Range/Units 07:33 07:33 07:33 WBC 22.87 H (3.98-10.04) K/mm3 RBC 2.28 L (3.98-5.22) M/mm3 Hgb 7.2 L* D (11.2-15.7) gm/dl Hct 23.2 L (34.1-44.9) % MCV 101.8 H (79.4-94.8) fl MCH 31.6 (25.6-32.2) pg MCHC 31.0 L (32.2-35.5) g/dl RDW Std Deviation 49.0 H (36.4-46.3) fL Plt Count 688 H (182-369) K/mm3 MPV 7.5 L (9.4-12.3) fl Neut % (Auto) 81.6 H (34.0-71.1) % Lymph % (Auto) 13.3 L (19.3-51.7) % [place] % (Auto) 4.2 L (4.7-12.5) % Eos % (Auto) 0.5 L (0.7-5.8) Baso % (Auto) 0.1 (0.1-1.2) % Neut # (Auto) 18.66 H (1.56-6.13) K/mm3 Lymph # (Auto) 3.04 (1.18-3.74) K/mm3 [place] # (Auto) 0.96 H (0.24-0.36) K/mm3 Eos # (Auto) 0.11 (0.04-0.36) K/mm3 Baso # (Auto) 0.03 (0.01-0.08) K/mm3 Manual Slide Review Abnormal smear PT 10.6 (9.7-12.0) SECONDS INR 0.97 APTT 28 (22-31) SECONDS Sodium 139 (136-145) mEq/L Potassium 3.5 (3.5-5.1) mEq/L Chloride 107 (98-107) mEq/L Carbon Dioxide 18 L (21-32) mEq/L Anion Gap 17.5 H (5-15) BUN 7 (7-18) mg/dL Creatinine 0.9 (0.55-1.02) mg/dL Est Cr Clr Drug Dosing 51.33 mL/min Estimated GFR (MDRD) > 60 (>60) mL/min BUN/Creatinine Ratio 7.8 L (14-18) Glucose 118 H (74-106) mg/dL Calcium 8.6 (8.5-10.1) mg/dL Total Bilirubin 0.3 (0.2-1.0) mg/dL AST 13 L (15-37) U/L ALT 23 (14-59) U/L Alkaline Phosphatase 117 H (46-116) U/L Troponin I 0.036 (0.00-0.056) ng/mL Total Protein 7.0 (6.4-8.2) g/dl Albumin 3.2 L (3.4-5.0) g/dl Globulin 3.8 gm/dL Albumin/Globulin Ratio 0.8 L (1-2) Blood Type Gel Antibody Screen Crossmatch 02/20/19 Range/Units 07:33 WBC (3.98-10.04) K/mm3 RBC (3.98-5.22) M/mm3 Hgb (11.2-15.7) gm/dl Hct (34.1-44.9) % MCV (79.4-94.8) fl MCH (25.6-32.2) pg MCHC (32.2-35.5) g/dl RDW Std Deviation (36.4-46.3) fL Plt Count (182-369) K/mm3 MPV (9.4-12.3) fl Neut % (Auto) (34.0-71.1) % Lymph % (Auto) (19.3-51.7) % [place] % (Auto) (4.7-12.5) % Eos % (Auto) (0.7-5.8) Baso % (Auto) (0.1-1.2) % Neut # (Auto) (1.56-6.13) K/mm3 Lymph # (Auto) (1.18-3.74) K/mm3 [place] # (Auto) (0.24-0.36) K/mm3 Eos # (Auto) (0.04-0.36) K/mm3 Baso # (Auto) (0.01-0.08) K/mm3 Manual Slide Review PT (9.7-12.0) SECONDS INR APTT (22-31) SECONDS Sodium (136-145) mEq/L Potassium (3.5-5.1) mEq/L Chloride (98-107) mEq/L Carbon Dioxide (21-32) mEq/L Anion Gap (5-15) BUN (7-18) mg/dL Creatinine (0.55-1.02) mg/dL Est Cr Clr Drug Dosing mL/min Estimated GFR (MDRD) (>60) mL/min BUN/Creatinine Ratio (14-18) Glucose (74-106) mg/dL Calcium (8.5-10.1) mg/dL Total Bilirubin (0.2-1.0) mg/dL AST (15-37) U/L ALT (14-59) U/L Alkaline Phosphatase (46-116) U/L Troponin I (0.00-0.056) ng/mL Total Protein (6.4-8.2) g/dl Albumin (3.4-5.0) g/dl Globulin gm/dL Albumin/Globulin Ratio (1-2) Blood Type A POSITIVE Gel Antibody Screen Negative Crossmatch See Detail Meds: Medications Generic Name Dose Route Start Last Admin Trade Name Freq PRN Reason Stop Dose Admin Sodium Chloride 250 mls @ 50 mls/hr 02/20/19 10:30 02/20/19 10:37 Normal Saline IV 50 mls/hr ASDIRECTED MARII Administration Sodium Chloride 10 ml 02/20/19 07:05 02/20/19 07:18 Saline Flush FLUSH 10 ml ASDIRECTED PRN Administration Keep Vein Open Sodium Chloride 10 ml 02/20/19 08:03 02/20/19 08:53 Saline Flush FLUSH 10 ml ONETIME PRN Administration IV FLUSH Discontinued Medications Generic Name Dose Route Start Last Admin Trade Name Freq PRN Reason Stop Dose Admin Diatrizoate Meglum/Diatrizoate Sod 120 ml 02/20/19 08:03 02/20/19 08:53 Gastrografin 37% PO 02/20/19 08:04 90 ml ONETIME ONE Administration Hydromorphone HCl 1 mg 02/20/19 07:07 02/20/19 07:17 Dilaudid IVPUSH 02/20/19 07:08 1 mg ONETIME ONE Administration Hydromorphone HCl 0.5 mg 02/20/19 10:14 02/20/19 10:18 Dilaudid IVPUSH 02/20/19 10:15 0.5 mg ONETIME ONE Administration Hydromorphone HCl 0.5 mg 02/20/19 11:23 Dilaudid IVPUSH 02/20/19 11:24 ONETIME ONE Sodium Chloride 1,000 mls @ 1,000 mls/hr 02/20/19 07:05 02/20/19 07:17 Normal Saline IV 02/20/19 08:04 1,000 mls/hr .BOLUS STA Administration Iopamidol 100 ml 02/20/19 08:03 02/20/19 08:53 Isovue-300 (61%) IVPUSH 02/20/19 08:04 100 ml ONETIME ONE Administration Ondansetron HCl 4 mg 02/20/19 07:05 02/20/19 07:17 Zofran IVPUSH 02/20/19 07:06 4 mg ONETIME ONE Administration - Re-Assessments/Exams Free Text/Narrative Re-Assessment/Exam: 02/20/19 11:37 I ordered an IV NS 1L bolus, zofran 4mg IV, dilaudid 1mg IV, labs, UA and a CT of her abdomen and pelvis. Her WBC was elevated at 22.87. Her Hgb was low at 7.2. Two weeks ago her Hgb was 9.2 and a couple weeks ago it was 12. I have ordered 2 units of PRBCs. Her platelets were elevated at 688. Her INR was normal at 0.97. Her anion gap was elevated at 17.5. Her troponin was normal at 0.036. her EKG shows a sinus tachycardia with no acute changes. Her CT shows bowel wall thickening with mild surrounding inflammatory change within the descending and sigmoid colon compatible with nonspecific colitis. Other findings believed to be incidental. She had more pain so I gave her a couple doses of dilaudid. I feel she needs to be admitted. I called [facility] and talked with Dr Wasserman the hospitalist and he accepted the patient. Departure - Departure Time of Disposition: 11:45 Disposition: DC/Tfer to Acute Hospital 02 Condition: Serious Clinical Impression: Colitis GI bleed Qualifiers: GI bleed type/associated pathology: unspecified gastrointestinal hemorrhage type Qualified Code(s): K92.2 - Gastrointestinal hemorrhage, unspecified Anemia Qualifiers: Anemia type: other cause Other causes of anemia: other cause, not classified Qualified Code(s): D64.89 - Other specified anemias - Discharge Information Referrals: PCP,None [Primary Care Provider] - Sepsis Event Note - Evaluation Sepsis Screening Result: No Definite Risk - Focused Exam Vital Signs: Vital Signs Temp Temp Pulse Resp BP Pulse Ox 02/20/19 10:48 97.9 F 20 160/62 H 92 L 02/20/19 10:34 98.6 F 16 160/64 H 92 L 02/20/19 06:54 99.0 F 106 H 15 174/142 H 96 Date Exam was Performed: 02/20/19 Time Exam was Performed: 11:29 - My Orders Last 24 Hours: My Active Orders 02/20/19 07:05 UA W/MICROSCOPIC [URIN] Stat Sodium Chloride 0.9% [Saline Flush] 10 ml FLUSH ASDIRECTED PRN ED Antiemetic Medication Reflex [OM.PC] Stat Peripheral IV Insertion Adult [OM.PC] Stat 02/20/19 07:06 Peripheral IV Care [RC] . DIRECTED 02/20/19 07:13 EKG Documentation Completion [RC] ASDIRECTED EKG 12 Lead [EK] Stat 02/20/19 07:33 RED BLOOD CELLS LP [BBK] Stat TYPE AND SCREEN [BBK] Stat 02/20/19 08:03 Sodium Chloride 0.9% [Saline Flush] 10 ml FLUSH ONETIME PRN 02/20/19 08:14 Transfuse Red Blood Cells [COMM] Stat 02/20/19 09:39 PATIENT RETYPE [BBK] Routine 02/20/19 10:30 Sodium Chloride 0.9% [Normal Saline] 250 ml IV ASDIRECTED - Assessment/Plan Last 24 Hours: My Active Orders 02/20/19 07:05 UA W/MICROSCOPIC [URIN] Stat Sodium Chloride 0.9% [Saline Flush] 10 ml FLUSH ASDIRECTED PRN ED Antiemetic Medication Reflex [OM.PC] Stat Peripheral IV Insertion Adult [OM.PC] Stat 02/20/19 07:06 Peripheral IV Care [RC] . DIRECTED 02/20/19 07:13 EKG Documentation Completion [RC] ASDIRECTED EKG 12 Lead [EK] Stat 02/20/19 07:33 RED BLOOD CELLS LP [BBK] Stat TYPE AND SCREEN [BBK] Stat 02/20/19 08:03 Sodium Chloride 0.9% [Saline Flush] 10 ml FLUSH ONETIME PRN 02/20/19 08:14 Transfuse Red Blood Cells [COMM] Stat 02/20/19 09:39 PATIENT RETYPE [BBK] Routine 02/20/19 10:30 Sodium Chloride 0.9% [Normal Saline] 250 ml IV ASDIRECTED
== END 2019-02-20 13:13 ==
LOC: JD.ED 06:49
DX: K52.9 Noninfective gastroenteritis and colitis, unspecified (principal); D64.89 Other specified anemias; I10 Essential (primary) hypertension; I25.10 Atherosclerotic heart disease of native coronary artery without angina pectoris; I25.2 Old myocardial infarction; E66.9 Obesity, unspecified; Z68.30 Body mass index [BMI] 30.0-30.9, adult; Z87.891 Personal history of nicotine dependence; Z79.82 Long term (current) use of aspirin; Z79.01 Long term (current) use of anticoagulants; Z79.899 Other long term (current) drug therapy; Z88.0 Allergy status to penicillin
CPT/HCPCS: 36415; 36430; 74177; 80053; 84484; 85025; 85610; 85730; 86850; 86900; 86901; 86922; 93005; 96361; 96374; 96375; 96376; 99285; J1170; J2405; J7030; J7050; P9016; Q9963; Q9967; 93010; 99284

== ENCOUNTER 2020-07-11 19:07 | Emergency (ER) | payer BC ==
[2020-07-11] MEDS ORDERED: Sodium Chloride 0.9% 10 ML Syringe FLUSH PRN (19:18)
[2020-07-11] MEDS ORDERED: Aspirin 81 MG Tab.Chew PO ONE (19:18)
[2020-07-11] MEDS ORDERED: HYDROmorphone 1 MG/ML Syringe IVPUSH ONE (19:19)
--- NOTE | 2020-07-11 19:35 | EDM.PDOC ---
ED HPI GENERAL MEDICAL PROBLEM - General Chief Complaint: Chest Pain Stated Complaint: CHEST PAIN Time Seen by Provider: 07/11/20 19:17 Source of Information: Reports: Patient History Limitations: Reports: No Limitations - History of Present Illness INITIAL COMMENTS - FREE TEXT/NARRATIVE: The patient presents for chest pain and shortness of breath. She said this started about 2 hours ago. She denies fever, chills or cough. She has a history of [place] in 2019 with stents. She still smokes. She has a history of hypertension and hypercholesterolemia. She has no abdominal pain, nausea or vomiting. Onset: Sudden Duration: Hour(s): (2) Location: Reports: Chest Quality: Reports: Sharp Severity: Severe Improves with: Reports: None Worsens with: Reports: None Associated Symptoms: Reports: Chest Pain, Shortness of Breath. Denies: Confusion, Cough, Headaches, Nausea/Vomiting Right Chest Pain Score (Numeric/FACES): 10 - Related Data Allergies Allergy/AdvReac Type Severity Reaction Status Date / Time Penicillins Allergy Swelling Verified 07/11/20 19:23 Home Meds: Home Meds Aspirin [Ecotrin EC] 81 mg PO DAILY 02/04/19 [History] Cyanocobalamin (Vitamin B-12) [Vitamin B-12] 1 tab PO DAILY 02/04/19 [History] Metoprolol Tartrate 12.5 mg PO BID 02/04/19 [History] Prasugrel HCl [Effient] 10 mg PO DAILY 02/04/19 [History] atorvaSTATin Calcium [Lipitor] 40 mg PO DAILY 02/04/19 [History] lisinopriL [Prinivil] 5 mg PO DAILY 02/04/19 [History] Nitroglycerin 0.4 mg SL ASDIRECTED PRN 02/06/19 [History] Past Medical History Cardiovascular History: Reports: CAD, Hypertension, [place], Stents Respiratory History: Reports: None MARKET DEVELOPMENT MANAGER History: Reports: None Musculoskeletal History: Reports: None Neurological History: Reports: None Psychiatric History: Reports: None Endocrine/Metabolic History: Reports: Obesity/BMI 30+ Hematologic History: Reports: Anticoagulation Therapy Immunologic History: Reports: None Oncologic (Cancer) History: Reports: None Dermatologic History: Reports: None - Infectious Disease History Infectious Disease History: Reports: None - Past Surgical History HEENT Surgical History: Reports: Oral Surgery Other Cardiovascular Surgeries/Procedures: 2 Stents Placed GI Surgical History: Reports: Appendectomy Female Surgical History: Reports: Hysterectomy Social & Family History - Caffeine Use Caffeine Use: Reports: Soda - Living Situation & Occupation Living situation: Reports: , with Spouse Occupation: Unemployed ED ROS GENERAL - Review of Systems Review Of Systems: See Below Constitutional: Reports: No Symptoms HEENT: Reports: No Symptoms Respiratory: Reports: Shortness of Breath Cardiovascular: Reports: Chest Pain Endocrine: Reports: No Symptoms GI/Abdominal: Reports: No Symptoms : Reports: No Symptoms Musculoskeletal: Reports: No Symptoms Skin: Reports: No Symptoms ED EXAM, GENERAL - Physical Exam Exam: See Below Exam Limited By: No Limitations General Appearance: Alert, Moderate Distress Ears: Normal External Exam Nose: Normal Inspection Head: Atraumatic, Normocephalic Neck: Normal Inspection, Supple, Non-Tender Respiratory/Chest: No Respiratory Distress, Lungs Clear, Normal Breath Sounds Cardiovascular: No Edema, No Murmur, Tachycardia GI/Abdominal: Soft, Non-Tender, No Organomegaly, No Mass Rectal (Female) Exam: Heme - Stool (Not a great sample) Extremities: Normal Inspection #1 Interpretation EKG Date: 07/11/20 Time: 19:10 Rhythm: Other (sinus tachycardia) Rate (Beats/Min): 114 Burke: Normal P-Wave: Present QRS: Normal ST-T: Other (ST elevation in the anterior leads due to LVH and ST depression in the inferior and lateral leads) QT: Prolonged EKG Interpretation Comments: LVH #2 Interpretation EKG Date: 07/11/20 Time: 20:27 Rhythm: NSR Rate (Beats/Min): 89 Burke: Normal P-Wave: Present QRS: Normal ST-T: Elevated Course - Vital Signs Last Recorded V/S: Last Vital Signs Temp 97.6 F 07/11/20 22:44 Pulse 77 07/11/20 22:44 Resp 16 07/11/20 22:44 BP 153/53 H 07/11/20 22:44 Pulse Ox 96 07/11/20 22:44 - Orders/Labs/Meds Orders: Active Orders 24 hr Category Date Time Status Cardiac Monitoring [RC] . DIRECTED Care 07/11/20 19:18 Active EKG Documentation Completion [RC] ASDIRECTED Care 07/11/20 20:25 Active EKG Documentation Completion [RC] STAT Care 07/11/20 19:19 Active Oxygen Therapy [RC] PRN Care 07/11/20 19:18 Active Peripheral IV Care [RC] . DIRECTED Care 07/11/20 19:19 Active Ang Chest [CT] Stat Exams 07/11/20 20:12 Taken Nitroglycerin/D5W [Nitroglycerin 25 MG/D5W 250 ML] Med 07/11/20 21:45 Active 25 mg in 250 ml IV TITRATE Sodium Chloride 0.9% [Normal Saline] 100 ml Med 07/11/20 20:30 Active IV ASDIRECTED Sodium Chloride 0.9% [Saline Flush] Med 07/11/20 20:30 Active 10 ml FLUSH ASDIRECTED Sodium Chloride 0.9% [Saline Flush] Med 07/11/20 19:18 Active 10 ml FLUSH ASDIRECTED PRN Peripheral IV Insertion Adult [OM.PC] Stat Oth 07/11/20 19:18 Ordered Transfuse PRBC [Transfuse Red Blood Cells] [COMM] Stat Oth 07/11/20 20:27 Ordered EKG 12 Lead [EK] Stat Ther 07/11/20 20:25 Ordered Medication Orders Sodium Chloride (Normal Saline) 100 mls @ 60 mls/hr IV ASDIRECTED MARII Last Admin: 07/11/20 20:47 Dose: 60 mls/hr Documented by: DANIELLE Nitroglycerin/Dextrose (Nitroglycerin 25 Mg/D5w 250 Ml) 25 mg in 250 mls @ 3 mls/hr IV TITRATE MARII; Protocol Sodium Chloride (Sodium Chloride 0.9% 10 Ml Syringe) 10 ml FLUSH ASDIRECTED PRN PRN Reason: Keep Vein Open Last Admin: 07/11/20 19:28 Dose: 10 ml Documented by: ISRRAEL Sodium Chloride (Sodium Chloride 0.9% 10 Ml Syringe) 10 ml FLUSH ASDIRECTED MARII Last Admin: 07/11/20 20:47 Dose: 10 ml Documented by: DANIELLE Labs: Laboratory Tests 07/11/20 07/11/20 07/11/20 Range/Units 19:15 19:15 19:15 WBC 16.39 H (3.98-10.04) K/mm3 RBC 2.51 L (3.98-5.22) M/mm3 Hgb 7.1 L* (11.2-15.7) gm/dl Hct 23.3 L (34.1-44.9) % MCV 92.8 D (79.4-94.8) fl MCH 28.3 (25.6-32.2) pg MCHC 30.5 L (32.2-35.5) g/dl RDW Std Deviation 46.4 H (36.4-46.3) fL Plt Count 835 H D (182-369) K/mm3 MPV 8.4 L (9.4-12.3) fl Neut % (Auto) 60.6 (34.0-71.1) % Lymph % (Auto) 30.8 (19.3-51.7) % [place] % (Auto) 5.9 (4.7-12.5) % Eos % (Auto) 2.0 (0.7-5.8) Baso % (Auto) 0.4 (0.1-1.2) % Neut # (Auto) 9.92 H (1.56-6.13) K/mm3 Lymph # (Auto) 5.05 H (1.18-3.74) K/mm3 [place] # (Auto) 0.97 H (0.24-0.36) K/mm3 Eos # (Auto) 0.33 (0.04-0.36) K/mm3 Baso # (Auto) 0.07 (0.01-0.08) K/mm3 Manual Slide Review Abnormal smear PT 10.4 (9.7-12.0) SECONDS INR 0.97 APTT 25.7 (21.7-31.4) SECONDS D-Dimer, Quantitative 2.32 H (0.19-0.50) mg/L Sodium 137 (136-145) mEq/L Potassium 3.4 L (3.5-5.1) mEq/L Chloride 102 (98-107) mEq/L Carbon Dioxide 18 L (21-32) mEq/L Anion Gap 20.4 H (5-15) BUN 12 (7-18) mg/dL Creatinine 1.0 (0.55-1.02) mg/dL Est Cr Clr Drug Dosing 45.66 mL/min Estimated GFR (MDRD) 58 (>60) mL/min BUN/Creatinine Ratio 12.0 L (14-18) Glucose 131 H (70-99) mg/dL Calcium 8.5 (8.5-10.1) mg/dL Total Bilirubin 0.2 (0.2-1.0) mg/dL AST 16 (15-37) U/L ALT 21 (14-59) U/L Alkaline Phosphatase 144 H (46-116) U/L Troponin I 0.081 H* (0.00-0.056) ng/mL Total Protein 7.7 (6.4-8.2) g/dl Albumin 3.7 (3.4-5.0) g/dl Globulin 4.0 gm/dL Albumin/Globulin Ratio 0.9 L (1-2) SARS-CoV-2 RNA (BENEDICTO) (NEGATIVE) Blood Type Gel Antibody Screen Crossmatch 07/11/20 07/11/20 Range/Units 19:15 19:50 WBC (3.98-10.04) K/mm3 RBC (3.98-5.22) M/mm3 Hgb (11.2-15.7) gm/dl Hct (34.1-44.9) % MCV (79.4-94.8) fl MCH (25.6-32.2) pg MCHC (32.2-35.5) g/dl RDW Std Deviation (36.4-46.3) fL Plt Count (182-369) K/mm3 MPV (9.4-12.3) fl Neut % (Auto) (34.0-71.1) % Lymph % (Auto) (19.3-51.7) % [place] % (Auto) (4.7-12.5) % Eos % (Auto) (0.7-5.8) Baso % (Auto) (0.1-1.2) % Neut # (Auto) (1.56-6.13) K/mm3 Lymph # (Auto) (1.18-3.74) K/mm3 [place] # (Auto) (0.24-0.36) K/mm3 Eos # (Auto) (0.04-0.36) K/mm3 Baso # (Auto) (0.01-0.08) K/mm3 Manual Slide Review PT (9.7-12.0) SECONDS INR APTT (21.7-31.4) SECONDS D-Dimer, Quantitative (0.19-0.50) mg/L Sodium (136-145) mEq/L Potassium (3.5-5.1) mEq/L Chloride (98-107) mEq/L Carbon Dioxide (21-32) mEq/L Anion Gap (5-15) BUN (7-18) mg/dL Creatinine (0.55-1.02) mg/dL Est Cr Clr Drug Dosing mL/min Estimated GFR (MDRD) (>60) mL/min BUN/Creatinine Ratio (14-18) Glucose (70-99) mg/dL Calcium (8.5-10.1) mg/dL Total Bilirubin (0.2-1.0) mg/dL AST (15-37) U/L ALT (14-59) U/L Alkaline Phosphatase (46-116) U/L Troponin I (0.00-0.056) ng/mL Total Protein (6.4-8.2) g/dl Albumin (3.4-5.0) g/dl Globulin gm/dL Albumin/Globulin Ratio (1-2) SARS-CoV-2 RNA (BENEDICTO) Negative (NEGATIVE) Blood Type A POSITIVE Gel Antibody Screen Negative Crossmatch See Detail Meds: Medications Generic Name Dose Route Start Last Admin Trade Name Freq PRN Reason Stop Dose Admin Sodium Chloride 100 mls @ 60 mls/hr 07/11/20 20:30 07/11/20 20:47 Normal Saline IV 60 mls/hr ASDIRECTED MARII Administration Nitroglycerin/Dextrose 25 mg in 250 mls @ 3 mls/hr 07/11/20 21:45 Nitroglycerin 25 Mg/D5w 250 Ml IV TITRATE MARII Protocol Sodium Chloride 10 ml 07/11/20 19:18 07/11/20 19:28 Sodium Chloride 0.9% 10 Ml Syringe FLUSH 10 ml ASDIRECTED PRN Administration Keep Vein Open Sodium Chloride 10 ml 07/11/20 20:30 07/11/20 20:47 Sodium Chloride 0.9% 10 Ml Syringe FLUSH 10 ml ASDIRECTED MARII Administration Discontinued Medications Generic Name Dose Route Start Last Admin Trade Name Freq PRN Reason Stop Dose Admin Aspirin 324 mg 07/11/20 19:18 07/11/20 19:24 Aspirin 81 Mg Tab.Chew PO 07/11/20 19:19 324 mg ONETIME ONE Administration Hydromorphone HCl 1 mg 07/11/20 19:19 07/11/20 19:24 Hydromorphone 1 Mg/Ml Syringe IVPUSH 07/11/20 19:20 1 mg ONETIME ONE Administration Hydromorphone HCl 0.5 mg 07/11/20 20:12 07/11/20 20:54 Hydromorphone 0.5 Mg/0.5 Ml Syringe IVPUSH 07/11/20 20:13 0.5 mg ONETIME ONE Administration Iopamidol 100 ml 07/11/20 20:27 07/11/20 20:46 Iopamidol 755 Mg/Ml 100 Ml Bottle IVPUSH 07/11/20 20:28 100 ml ONETIME ONE Administration Metoprolol Tartrate 5 mg 07/11/20 20:35 07/11/20 21:56 Metoprolol Tartrate 5 Mg/5 Ml Sdv IVPUSH 07/11/20 20:36 5 mg ONETIME ONE Administration Nitroglycerin 0.4 mg 07/11/20 20:34 07/11/20 20:54 Nitroglycerin 0.4 Mg Tab.Sl SL 07/11/20 20:35 0.4 mg ONETIME ONE Administration Nitroglycerin 0.4 mg 07/11/20 21:50 07/11/20 22:04 Nitroglycerin 0.4 Mg Tab.Sl SL 07/11/20 21:51 0.4 mg ONETIME ONE Administration - Re-Assessments/Exams Free Text/Narrative Re-Assessment/Exam: 07/11/20 19:35 I ordered an IV saline lock, EKG, CXR, aspirin 324mg PO, dilaudid 1mg IV and labs. Her EKG shows a sinus tachycardia, LVH, ST elevation in the anterior leads due to LVH and ST depression in the inferior and lateral leads. 07/11/20 20:14 Her Hgb came back at 7.1. I did a rectal exam and I did not get a great sample. From what I did get it was negative. She did have a GI bleed after getting her stents in 2019. She was on effient at the time. She said she stopped that about a year ago. She was getting to many nose bleeds. Her WBC is elevated at 16.39. Her Hgb is low at 7.1. Her platelets are elevated at 835. Her PT and PTT look good. Her D-dimer is elevated at 2.32. Her K was low at 3.4. Her anion gap is elevated at 20.4. Her glucose is elevated at 131. Her alk phos is elevated at 144. Her troponin was elevated at 0.081. I have ordered a CT angio of her chest. I ordered dilaudid 0.5mg IV. I have also typed and screened her. 07/11/20 21:36 My BRAND PLANNER was talking with the catering administrative assistant Dr Vanegas at [facility] in [place]. After she was done I was able to get on with him. I talked to him about what was going on. He wanted he blood started. He also wanted me to give nitro and lopressor. He did recommend she could stay here and get blood and repeat troponins. If they go up she can come tomorrow or come now if we are not comfortable. I was still waiting for her CT angio. The CT angio shows congestive heart failure. No pulmonary embolism. 1.6cm fat density left adrenal nodule consistent with a lipid rich adrenal adenoma. Interval enlargement of nonspecific bilateral hilar and subcarinal lymph nodes. Moderate atherosclerotic disease of the aorta without aneurysm. 07/11/20 21:51 07/11/20 23:18 I talked with the ER doctor Dr Ruffin and the hospitalist Dr Healy and Dr Healy accepted the patient. I gave the patient another nitro and lopressor. She is also getting her blood now. Departure - Departure Time of Disposition: 23:20 Disposition: DC/Tfer to Acute Hospital 02 Reason for Transfer *Q: Other Condition: Serious Clinical Impression: Non-STEMI (non-ST elevated myocardial infarction) GI bleed Qualifiers: GI bleed type/associated pathology: unspecified gastrointestinal hemorrhage type Qualified Code(s): K92.2 - Gastrointestinal hemorrhage, unspecified Referrals: PCP,None [Primary Care Provider] - Forms: ED Department Discharge Sepsis Event Note (ED) - Evaluation Sepsis Screening Result: No Definite Risk - Focused Exam Vital Signs: Vital Signs Temp Temp Pulse Pulse Resp BP BP 07/11/20 22:44 97.6 F 77 16 153/53 H 07/11/20 22:25 97.5 F 77 20 153/51 H 07/11/20 22:04 182/71 H 07/11/20 21:56 84 181/71 H 07/11/20 20:54 188/73 H 07/11/20 19:19 97.2 F 105 H 22 H 191/74 H Pulse Ox 07/11/20 22:44 96 07/11/20 22:25 93 L 07/11/20 22:04 07/11/20 21:56 07/11/20 20:54 07/11/20 19:19 95 - My Orders Last 24 Hours: My Active Orders 07/11/20 19:18 Cardiac Monitoring [RC] . DIRECTED Oxygen Therapy [RC] PRN Sodium Chloride 0.9% [Saline Flush] 10 ml FLUSH ASDIRECTED PRN Peripheral IV Insertion Adult [OM.PC] Stat 07/11/20 19:19 EKG Documentation Completion [RC] STAT Peripheral IV Care [RC] . DIRECTED 07/11/20 20:12 Ang Chest [CT] Stat 07/11/20 20:25 EKG Documentation Completion [RC] ASDIRECTED EKG 12 Lead [EK] Stat 07/11/20 20:27 Transfuse PRBC [Transfuse Red Blood Cells] [COMM] Stat 07/11/20 20:30 Sodium Chloride 0.9% [Normal Saline] 100 ml IV ASDIRECTED Sodium Chloride 0.9% [Saline Flush] 10 ml FLUSH ASDIRECTED 07/11/20 21:45 Nitroglycerin/D5W [Nitroglycerin 25 MG/D5W 250 ML] 25 mg in 250 ml IV TITRATE - Assessment/Plan Last 24 Hours: My Active Orders 07/11/20 19:18 Cardiac Monitoring [RC] . DIRECTED Oxygen Therapy [RC] PRN Sodium Chloride 0.9% [Saline Flush] 10 ml FLUSH ASDIRECTED PRN Peripheral IV Insertion Adult [OM.PC] Stat 07/11/20 19:19 EKG Documentation Completion [RC] STAT Peripheral IV Care [RC] . DIRECTED 07/11/20 20:12 Ang Chest [CT] Stat 07/11/20 20:25 EKG Documentation Completion [RC] ASDIRECTED EKG 12 Lead [EK] Stat 07/11/20 20:27 Transfuse PRBC [Transfuse Red Blood Cells] [COMM] Stat 07/11/20 20:30 Sodium Chloride 0.9% [Normal Saline] 100 ml IV ASDIRECTED Sodium Chloride 0.9% [Saline Flush] 10 ml FLUSH ASDIRECTED 07/11/20 21:45 Nitroglycerin/D5W [Nitroglycerin 25 MG/D5W 250 ML] 25 mg in 250 ml IV TITRATE
[2020-07-11] MEDS ORDERED: HYDROmorphone 0.5 MG/0.5 ML Syringe IVPUSH ONE (20:12)
--- NOTE | 2020-07-11 20:13 | CR ---
Chest: Portable view of the chest was obtained. Comparison: Prior chest x-ray of 02/06/19. Heart size and mediastinum are within normal limits. Lung markings are diffusely increased raising the question of pulmonary vascular congestion given the history of chest pain. No alveolar infiltrates are seen. Bony structures are unremarkable. Impression: 1. Increased lung markings raising the possibility of pulmonary vascular congestion. 2. No other acute abnormality is appreciated on portable chest x-ray. Diagnostic code #3
[2020-07-11] MEDS ORDERED: Iopamidol 755 Mg/ML 100 ML Bottle IVPUSH ONE (20:27)
[2020-07-11] MEDS ORDERED: Sodium Chloride 0.9% 10 ML Syringe FLUSH SCH (20:30)
[2020-07-11] MEDS ORDERED: Sodium Chloride 0.9% 100 ML IV SCH (20:30)
[2020-07-11] MEDS ORDERED: Nitroglycerin 0.4 MG Tab.SL SL ONE ×2 (20:34→21:50)
[2020-07-11] MEDS ORDERED: Metoprolol Tartrate 5 MG/5 ML SDV IVPUSH ONE (20:35)
[2020-07-11] MEDS ORDERED: Nitroglycerin/D5W 25 MG/250 ML BOTTLE IV SCH (21:45)
--- NOTE | 2020-07-12 08:23 | CT ---
CT chest Technique: Multiple axial sections were obtained through the chest. Intravenous contrast was utilized. Study has been performed as a pulmonary angiogram protocol. Comparison: Prior chest study of 01/30/19. Prior chest x-ray performed earlier on the same day is also available (7:37 PM). Findings: Pulmonary arteries are well opacified. No filling defects are seen to indicate pulmonary embolism. Thoracic aorta shows atherosclerotic change without aneurysm. Diffuse atherosclerotic change is seen within the coronary arteries. No pericardial thickening is seen. Heart size is slightly enlarged. Small nodule is noted within the left adrenal gland measuring 1.9 cm in size. This shows evidence of fat compatible with a benign nodule. Mediastinum shows adenopathy within the pretracheal, precarinal and periaortic regions. Slight increasing adenopathy is seen within both hilar regions. Axillary lymph nodes are seen which are believed to be stable in appearance. Diffuse groundglass appearance is noted suspicious for pulmonary vascular congestion. This correlates to recent chest x-ray performed earlier on the same day. Bone window settings were reviewed which show no acute osseous abnormality. Impression: 1. Findings which are felt compatible with early CHF. This correlates to chest x-ray performed earlier on the same day. 2. Slight increasing mediastinal, periaortic and hilar adenopathy which is nonspecific regarding etiology. 3. Nodule within the left adrenal gland which appears fat containing compatible with benign nodule. 4. Other atherosclerotic change as noted above. Diagnostic code #9 I agree with preliminary report from [facility], finalized on 07/11/20, 10:21 PM CDT, code 1
== END 2020-07-11 23:51 ==
LOC: JD.ED 19:07
DX: I21.4 Non-ST elevation (NSTEMI) myocardial infarction (principal); K92.2 Gastrointestinal hemorrhage, unspecified; I10 Essential (primary) hypertension; E66.9 Obesity, unspecified; I25.10 Atherosclerotic heart disease of native coronary artery without angina pectoris; I25.2 Old myocardial infarction; Z95.5 Presence of coronary angioplasty implant and graft; Z88.0 Allergy status to penicillin; Z79.82 Long term (current) use of aspirin; Z20.822 Contact with and (suspected) exposure to COVID-19; Z68.29 Body mass index [BMI] 29.0-29.9, adult
CPT/HCPCS: 36415; 36430; 71045; 71275; 80053; 84484; 85025; 85379; 85610; 85730; 86850; 86900; 86901; 86922; 87635; 93005; 96374; 96375; 96376; 99285; A9270; J1170; J3490; P9016; Q9967; 93010; U0002

== ENCOUNTER 2020-12-26 17:46 | Emergency (ER) | payer BC ==
[2020-12-26] MEDS ORDERED: Albuterol/Ipratropium 3.0-0.5 MG/3 ML Neb Soln NEB ONE (18:10)
[2020-12-26] MEDS: Sodium Chloride 0.9% 10 ML Syringe FLUSH PRN ×2 (18:14→19:32)
--- NOTE | 2020-12-26 18:16 | EDM.PDOC ---
<Shahriar Balbuena - Last Filed: 12/27/20 00:35> ED HPI GENERAL MEDICAL PROBLEM - General Chief Complaint: Respiratory Problem Stated Complaint: SOB Time Seen by Provider: 12/26/20 17:58 - Related Data Allergies Allergy/AdvReac Type Severity Reaction Status Date / Time Penicillins Allergy Swelling Verified 12/26/20 18:00 Home Meds: Home Meds Aspirin [Ecotrin EC] 81 mg PO DAILY 02/04/19 [History] Cyanocobalamin (Vitamin B-12) [Vitamin B-12] 1 tab PO DAILY 02/04/19 [History] Metoprolol Tartrate 12.5 mg PO BID 02/04/19 [History] Prasugrel HCl [Effient] 10 mg PO DAILY 02/04/19 [History] atorvaSTATin Calcium [Lipitor] 40 mg PO DAILY 02/04/19 [History] lisinopriL [Prinivil] 5 mg PO DAILY 02/04/19 [History] Nitroglycerin 0.4 mg SL ASDIRECTED PRN 02/06/19 [History] #2 Interpretation EKG Date: 12/26/20 Time: 23:30 Rhythm: Other (sinus tachycardia) Rate (Beats/Min): 109 Norton: Normal P-Wave: Present QRS: Normal ST-T: Depressed (Lateral and inferior leads) Course - Re-Assessments/Exams Free Text/Narrative Re-Assessment/Exam: 12/27/20 00:35 The patient returns to the ER from the airport. On the way to the airport she was complaining she was having more trouble breathing. Her lungs sounds were rales. Her oxygen saturations went down to the 60s. They put her on a nonrebreather and that helped some. She became more somnolent and she had some frothy sputum. When she came back her oxygen saturations were 81% on a nonrebreather and she was somnolent. I elected to intubate her. I used etomidate and succinylcholine. I used a 7.5tube. There were no complications. 12/27/20 00:39 I ordered propofol for sedation. Her CXR shows congestive changes. ET tube is in the right position. OG tube is in place. I called [facility] and talked to Dr Gaston the critical care nurse specialist and he accepted the patient. She will be going by [place] helicopter. Critical care time is 45 minutes. Departure - Departure Disposition: DC/Tfer to [facility] 02 Clinical Impression: Non-STEMI (non-ST elevated myocardial infarction), Flash pulmonary edema Anemia Qualifiers: Anemia type: unspecified type Qualified Code(s): D64.9 - Anemia, unspecified Respiratory failure Qualifiers: Chronicity: acute Respiratory failure complication: hypoxia Qualified Code(s): J96.01 - Acute respiratory failure with hypoxia - Discharge Information Referrals: PCP,Not In Area [Primary Care Provider] - Forms: ED Department Discharge <Farnaz Laguna - Last Filed: 12/27/20 15:05> ED HPI GENERAL MEDICAL PROBLEM - General Source of Information: Reports: Patient, RN Notes Reviewed History Limitations: Reports: No Limitations - History of Present Illness INITIAL COMMENTS - FREE TEXT/NARRATIVE: Patient is a 55-year-old female presenting to the emergency department with complaints of shortness of breath and intermittent chest pains. She reports shortness of breath began last evening and has been gradually increasing since that time. They were in [place] today and upon returning she was having difficulty catching her breath. She does report intermittent midsternal chest pain which she states lasts about 10 to 15 minutes per episode and then resolves. She has taken numerous doses of Nelli aspirin today with the last being 2 baby aspirin's prior to coming to ER. She estimates that she is taking at least 6 of these today. She does have a history of TN with stents in 2019. Denies any underlying lung pathology including COPD, however she is [id number] smoker. Reports she has been trying to cut back and she is now going through pack every 3 to 4 days. Denies any cough, fever, chills, nausea, vomiting, or diarrhea. Patient reports that she was in [place] today for a doctor's appointment related to numbness, pain, and swelling she has been having to her left foot and ankle. Reports that she was diagnosed with what she thinks is peripheral vascular disease. Past Medical History Cardiovascular History: Reports: CAD, Hypertension, TN, Stents Respiratory History: Reports: None DISPENSING OPTICIAN History: Reports: None Musculoskeletal History: Reports: None Neurological History: Reports: None Psychiatric History: Reports: None Endocrine/Metabolic History: Reports: Obesity/BMI 30+ Hematologic History: Reports: Anticoagulation Therapy Immunologic History: Reports: None Oncologic (Cancer) History: Reports: None Dermatologic History: Reports: None - Infectious Disease History Infectious Disease History: Reports: None - Past Surgical History HEENT Surgical History: Reports: Oral Surgery Cardiovascular Surgical History: Reports: Coronary Artery Stent Other Cardiovascular Surgeries/Procedures: 2 Stents Placed GI Surgical History: Reports: Appendectomy Female Surgical History: Reports: Hysterectomy Musculoskeletal Surgical History: Reports: Other (See Below) Social & Family History - Tobacco Use Tobacco Use Status *Q: Current Every Day Tobacco User Years of Tobacco use: 40 Packs/Tins Daily: 1 - Caffeine Use Caffeine Use: Reports: None - Living Situation & Occupation Living situation: Reports: , with Spouse Occupation: Unemployed ED ROS GENERAL - Review of Systems Review Of Systems: See Below Constitutional: Reports: No Symptoms. Denies: Fever, Chills HEENT: Reports: No Symptoms Respiratory: Reports: Shortness of Breath, Wheezing, Pleuritic Chest Pain. Denies: Cough Cardiovascular: Reports: Chest Pain, Dyspnea on Exertion. Denies: Syncope Endocrine: Reports: No Symptoms GI/Abdominal: Reports: No Symptoms. Denies: Abdominal Pain, Bloody Stool, D iarrhea, Hematemesis, Melena, Vomiting : Reports: No Symptoms Musculoskeletal: Reports: No Symptoms Skin: Reports: No Symptoms Neurological: Reports: No Symptoms Psychiatric: Reports: No Symptoms Hematologic/Lymphatic: Reports: No Symptoms Immunologic: Reports: No Symptoms ED EXAM, GENERAL - Physical Exam Exam: See Below Exam Limited By: No Limitations General Appearance: Alert, Mild Distress Respiratory/Chest: Respiratory Distress (Mild), Decreased Breath Sounds, Wheezing (Scattered faint expiratory), Prolonged Expiration, Other (Low midsternal chest wall tenderness.) Cardiovascular: Normal Peripheral Pulses, Regular Rate, Rhythm, No Edema, No Gallop, No JVD, No Murmur, No Rub GI/Abdominal: Normal Bowel Sounds, Soft, Non-Tender, No Organomegaly, No Distention, No Abnormal Bruit, No Mass Neurological: Alert, Oriented, CN II-XII Intact, Normal Cognition, Normal Reflexes, No Motor/Sensory Deficits Psychiatric: Normal Affect, Normal Mood Skin Exam: Warm, Dry, Intact, No Rash, Pallor #1 Interpretation EKG Date: 12/26/20 Time: 18:04 Rhythm: NSR Rate (Beats/Min): 99 Norton: Normal P-Wave: Present QRS: Normal ST-T: Depressed (diffuse) QT: Normal Comparison: No Change Course - Vital Signs Last Recorded V/S: Last Vital Signs Temp 97.1 F 12/27/20 01:20 Pulse 108 H 12/26/20 17:56 Resp 18 12/27/20 01:20 BP 110/48 L 12/27/20 01:20 Pulse Ox 96 12/27/20 01:20 - Orders/Labs/Meds Orders: Active Orders 24 hr Category Date Time Status Desired Level of Sedation (RASS) [AST] Click to Edit Oth 12/26/20 23:48 Ordered Peripheral IV Insertion Adult [OM.PC] Stat Oth 12/26/20 18:02 Ordered Transfuse RBC [Transfuse Red Blood Cells] [COMM] Oth 12/26/20 19:31 Ordered Routine EKG 12 Lead [EK] Stat Ther 12/27/20 00:29 Ordered Labs: Laboratory Tests 12/26/20 12/26/20 12/26/20 Range/Units 17:57 18:00 18:00 WBC 17.78 H (3.98-10.04) K/mm3 RBC 2.39 L (3.98-5.22) M/mm3 Hgb 6.8 L* (11.2-15.7) gm/dl Hct 22.6 L (34.1-44.9) % MCV 94.6 (79.4-94.8) fl MCH 28.5 (25.6-32.2) pg MCHC 30.1 L (32.2-35.5) g/dl RDW Std Deviation 49.3 H (36.4-46.3) fL Plt Count 876 H* (182-369) K/mm3 MPV 8.3 L (9.4-12.3) fl Neut % (Auto) 70.4 (34.0-71.1) % Lymph % (Auto) 21.5 (19.3-51.7) % Pratt % (Auto) 6.5 (4.7-12.5) % Eos % (Auto) 1.1 (0.7-5.8) Baso % (Auto) 0.3 (0.1-1.2) % Neut # (Auto) 12.52 H (1.56-6.13) K/mm3 Lymph # (Auto) 3.82 H (1.18-3.74) K/mm3 Pratt # (Auto) 1.15 H (0.24-0.36) K/mm3 Eos # (Auto) 0.20 (0.04-0.36) K/mm3 Baso # (Auto) 0.05 (0.01-0.08) K/mm3 Manual Slide Review Abnormal smear PT (9.7-12.0) SECONDS INR APTT (21.7-31.4) SECONDS D-Dimer, Quantitative 3.01 H (0.19-0.50) mg/L Puncture Site ABG pH (7.35-7.45) ABG pCO2 (35.0-45.0) mmHg ABG pO2 (80.0-100.0) mmHg ABG HCO3 (22.0-26.0) meq/L ABG O2 Saturation (96.0-97.0) % ABG Base Excess (-2-2.0) Brooks Test A-a Gradient mmHg O2 Delivery Device FiO2 (21.00-100.00) % Tidal Volume cc PEEP cmH20 Sodium (136-145) mEq/L Potassium (3.5-5.1) mEq/L Chloride (98-107) mEq/L Carbon Dioxide (21-32) mEq/L Anion Gap (5-15) BUN (7-18) mg/dL Creatinine (0.55-1.02) mg/dL Est Cr Clr Drug Dosing mL/min Estimated GFR (MDRD) (>60) mL/min BUN/Creatinine Ratio (14-18) Glucose (70-99) mg/dL Calcium (8.5-10.1) mg/dL Magnesium (1.8-2.4) mg/dL Total Bilirubin (0.2-1.0) mg/dL AST (15-37) U/L ALT (14-59) U/L Alkaline Phosphatase (46-116) U/L Troponin I (0.00-0.056) ng/mL C-Reactive Protein (<1.0) mg/dL NT-Pro-B Natriuret Pep (0-125) pg/mL Total Protein (6.4-8.2) g/dl Albumin (3.4-5.0) g/dl Globulin gm/dL Albumin/Globulin Ratio (1-2) Urine Color (Yellow) Urine Appearance (Clear) Urine pH (5.0-8.0) Ur Specific [place] (1.005-1.030) Urine Protein (Negative) Urine Glucose (UA) (Negative) Urine Ketones (Negative) Urine Occult Blood (Negative) Urine Nitrite (Negative) Urine Bilirubin (Negative) Urine Urobilinogen (0.2-1.0) Ur Leukocyte Esterase (Negative) Urine RBC (0-5) /hpf Urine WBC (0-5) /hpf Ur Epithelial Cells (0-5) /hpf Urine Bacteria (FEW) /hpf Urine Mucus (FEW) /hpf SARS-CoV-2 RNA (BENEDICTO) Negative (NEGATIVE) Blood Type Gel Antibody Screen Crossmatch 12/26/20 12/26/20 12/26/20 Range/Units 18:00 18:00 18:00 WBC (3.98-10.04) K/mm3 RBC (3.98-5.22) M/mm3 Hgb (11.2-15.7) gm/dl Hct (34.1-44.9) % MCV (79.4-94.8) fl MCH (25.6-32.2) pg MCHC (32.2-35.5) g/dl RDW Std Deviation (36.4-46.3) fL Plt Count (182-369) K/mm3 MPV (9.4-12.3) fl Neut % (Auto) (34.0-71.1) % Lymph % (Auto) (19.3-51.7) % Pratt % (Auto) (4.7-12.5) % Eos % (Auto) (0.7-5.8) Baso % (Auto) (0.1-1.2) % Neut # (Auto) (1.56-6.13) K/mm3 Lymph # (Auto) (1.18-3.74) K/mm3 Pratt # (Auto) (0.24-0.36) K/mm3 Eos # (Auto) (0.04-0.36) K/mm3 Baso # (Auto) (0.01-0.08) K/mm3 Manual Slide Review PT 10.3 (9.7-12.0) SECONDS INR 0.93 APTT 22.8 (21.7-31.4) SECONDS D-Dimer, Quantitative (0.19-0.50) mg/L Puncture Site ABG pH (7.35-7.45) ABG pCO2 (35.0-45.0) mmHg ABG pO2 (80.0-100.0) mmHg ABG HCO3 (22.0-26.0) meq/L ABG O2 Saturation (96.0-97.0) % ABG Base Excess (-2-2.0) Brooks Test A-a Gradient mmHg O2 Delivery Device FiO2 (21.00-100.00) % Tidal Volume cc PEEP cmH20 Sodium 137 (136-145) mEq/L Potassium 3.4 L (3.5-5.1) mEq/L Chloride 101 (98-107) mEq/L Carbon Dioxide 22 (21-32) mEq/L Anion Gap 17.4 H (5-15) BUN 7 (7-18) mg/dL Creatinine 0.9 (0.55-1.02) mg/dL Est Cr Clr Drug Dosing 50.13 mL/min Estimated GFR (MDRD) > 60 (>60) mL/min BUN/Creatinine Ratio 7.8 L (14-18) Glucose 121 H (70-99) mg/dL Calcium 9.1 (8.5-10.1) mg/dL Magnesium (1.8-2.4) mg/dL Total Bilirubin 0.3 (0.2-1.0) mg/dL AST 15 (15-37) U/L ALT 20 (14-59) U/L Alkaline Phosphatase 114 (46-116) U/L Troponin I 0.198 H* (0.00-0.056) ng/mL C-Reactive Protein 1.1 H* (<1.0) mg/dL NT-Pro-B Natriuret Pep 3561 H (0-125) pg/mL Total Protein 7.9 (6.4-8.2) g/dl Albumin 3.7 (3.4-5.0) g/dl Globulin 4.2 gm/dL Albumin/Globulin Ratio 0.9 L (1-2) Urine Color (Yellow) Urine Appearance (Clear) Urine pH (5.0-8.0) Ur Specific [place] (1.005-1.030) Urine Protein (Negative) Urine Glucose (UA) (Negative) Urine Ketones (Negative) Urine Occult Blood (Negative) Urine Nitrite (Negative) Urine Bilirubin (Negative) Urine Urobilinogen (0.2-1.0) Ur Leukocyte Esterase (Negative) Urine RBC (0-5) /hpf Urine WBC (0-5) /hpf Ur Epithelial Cells (0-5) /hpf Urine Bacteria (FEW) /hpf Urine Mucus (FEW) /hpf SARS-CoV-2 RNA (BENEDICTO) (NEGATIVE) Blood Type Gel Antibody Screen Crossmatch 12/26/20 12/26/20 12/26/20 Range/Units 18:00 23:40 23:40 WBC (3.98-10.04) K/mm3 RBC (3.98-5.22) M/mm3 Hgb 8.5 L D (11.2-15.7) gm/dl Hct 28.2 L (34.1-44.9) % MCV (79.4-94.8) fl MCH (25.6-32.2) pg MCHC (32.2-35.5) g/dl RDW Std Deviation (36.4-46.3) fL Plt Count (182-369) K/mm3 MPV (9.4-12.3) fl Neut % (Auto) (34.0-71.1) % Lymph % (Auto) (19.3-51.7) % Pratt % (Auto) (4.7-12.5) % Eos % (Auto) (0.7-5.8) Baso % (Auto) (0.1-1.2) % Neut # (Auto) (1.56-6.13) K/mm3 Lymph # (Auto) (1.18-3.74) K/mm3 Pratt # (Auto) (0.24-0.36) K/mm3 Eos # (Auto) (0.04-0.36) K/mm3 Baso # (Auto) (0.01-0.08) K/mm3 Manual Slide Review PT (9.7-12.0) SECONDS INR APTT (21.7-31.4) SECONDS D-Dimer, Quantitative (0.19-0.50) mg/L Puncture Site ABG pH (7.35-7.45) ABG pCO2 (35.0-45.0) mmHg ABG pO2 (80.0-100.0) mmHg ABG HCO3 (22.0-26.0) meq/L ABG O2 Saturation (96.0-97.0) % ABG Base Excess (-2-2.0) Brooks Test A-a Gradient mmHg O2 Delivery Device FiO2 (21.00-100.00) % Tidal Volume cc PEEP cmH20 Sodium 134 L (136-145) mEq/L Potassium 3.8 (3.5-5.1) mEq/L Chloride 99 (98-107) mEq/L Carbon Dioxide 20 L (21-32) mEq/L Anion Gap 18.8 H (5-15) BUN 12 (7-18) mg/dL Creatinine 1.0 (0.55-1.02) mg/dL Est Cr Clr Drug Dosing 45.12 mL/min Estimated GFR (MDRD) 57 (>60) mL/min BUN/Creatinine Ratio 12.0 L (14-18) Glucose 339 H (70-99) mg/dL Calcium 8.2 L (8.5-10.1) mg/dL Magnesium 2.0 (1.8-2.4) mg/dL Total Bilirubin 0.4 (0.2-1.0) mg/dL AST 20 (15-37) U/L ALT 14 (14-59) U/L Alkaline Phosphatase 126 H (46-116) U/L Troponin I 0.311 H* (0.00-0.056) ng/mL C-Reactive Protein (<1.0) mg/dL NT-Pro-B Natriuret Pep (0-125) pg/mL Total Protein 7.2 (6.4-8.2) g/dl Albumin 3.6 (3.4-5.0) g/dl Globulin 3.6 gm/dL Albumin/Globulin Ratio 1.0 (1-2) Urine Color (Yellow) Urine Appearance (Clear) Urine pH (5.0-8.0) Ur Specific [place] (1.005-1.030) Urine Protein (Negative) Urine Glucose (UA) (Negative) Urine Ketones (Negative) Urine Occult Blood (Negative) Urine Nitrite (Negative) Urine Bilirubin (Negative) Urine Urobilinogen (0.2-1.0) Ur Leukocyte Esterase (Negative) Urine RBC (0-5) /hpf Urine WBC (0-5) /hpf Ur Epithelial Cells (0-5) /hpf Urine Bacteria (FEW) /hpf Urine Mucus (FEW) /hpf SARS-CoV-2 RNA (BENEDICTO) (NEGATIVE) Blood Type A POSITIVE Gel Antibody Screen Negative Crossmatch See Detail 12/26/20 12/27/20 Range/Units 23:45 00:01 WBC (3.98-10.04) K/mm3 RBC (3.98-5.22) M/mm3 Hgb (11.2-15.7) gm/dl Hct (34.1-44.9) % MCV (79.4-94.8) fl MCH (25.6-32.2) pg MCHC (32.2-35.5) g/dl RDW Std Deviation (36.4-46.3) fL Plt Count (182-369) K/mm3 MPV (9.4-12.3) fl Neut % (Auto) (34.0-71.1) % Lymph % (Auto) (19.3-51.7) % Pratt % (Auto) (4.7-12.5) % Eos % (Auto) (0.7-5.8) Baso % (Auto) (0.1-1.2) % Neut # (Auto) (1.56-6.13) K/mm3 Lymph # (Auto) (1.18-3.74) K/mm3 Pratt # (Auto) (0.24-0.36) K/mm3 Eos # (Auto) (0.04-0.36) K/mm3 Baso # (Auto) (0.01-0.08) K/mm3 Manual Slide Review PT (9.7-12.0) SECONDS INR APTT (21.7-31.4) SECONDS D-Dimer, Quantitative (0.19-0.50) mg/L Puncture Site Lt radial ABG pH 7.15 L* (7.35-7.45) ABG pCO2 56.5 H (35.0-45.0) mmHg ABG pO2 121.0 H (80.0-100.0) mmHg ABG HCO3 19.1 L (22.0-26.0) meq/L ABG O2 Saturation 96.8 (96.0-97.0) % ABG Base Excess -9.1 L (-2-2.0) Brooks Test Positive A-a Gradient 522 mmHg O2 Delivery Device Ventilator FiO2 100.00 (21.00-100.00) % Tidal Volume 400.0 cc PEEP 5.0 cmH20 Sodium (136-145) mEq/L Potassium (3.5-5.1) mEq/L Chloride (98-107) mEq/L Carbon Dioxide (21-32) mEq/L Anion Gap (5-15) BUN (7-18) mg/dL Creatinine (0.55-1.02) mg/dL Est Cr Clr Drug Dosing mL/min Estimated GFR (MDRD) (>60) mL/min BUN/Creatinine Ratio (14-18) Glucose (70-99) mg/dL Calcium (8.5-10.1) mg/dL Magnesium (1.8-2.4) mg/dL Total Bilirubin (0.2-1.0) mg/dL AST (15-37) U/L ALT (14-59) U/L Alkaline Phosphatase (46-116) U/L Troponin I (0.00-0.056) ng/mL C-Reactive Protein (<1.0) mg/dL NT-Pro-B Natriuret Pep (0-125) pg/mL Total Protein (6.4-8.2) g/dl Albumin (3.4-5.0) g/dl Globulin gm/dL Albumin/Globulin Ratio (1-2) Urine Color Light yellow (Yellow) Urine Appearance Clear (Clear) Urine pH 6.0 (5.0-8.0) Ur Specific [place] 1.020 (1.005-1.030) Urine Protein Trace H (Negative) Urine Glucose (UA) Trace H (Negative) Urine Ketones Negative (Negative) Urine Occult Blood Negative (Negative) Urine Nitrite Negative (Negative) Urine Bilirubin Negative (Negative) Urine Urobilinogen 0.2 (0.2-1.0) Ur Leukocyte Esterase Negative (Negative) Urine RBC Not seen (0-5) /hpf Urine WBC Not seen (0-5) /hpf Ur Epithelial Cells 0-5 (0-5) /hpf Urine Bacteria Not seen (FEW) /hpf Urine Mucus Rare (FEW) /hpf SARS-CoV-2 RNA (BENEDICTO) (NEGATIVE) Blood Type Gel Antibody Screen Crossmatch Meds: Medications Discontinued Medications Generic Name Dose Route Start Last Admin Trade Name Freq PRN Reason Stop Dose Admin Albuterol/Ipratropium 3 ml 12/26/20 18:10 12/26/20 18:20 Albuterol/Ipratropium 3.0-0.5 Mg/3 Ml Neb Soln NEB 12/26/20 18:11 3 ml ONETIME ONE Administration Etomidate 40 mg 12/27/20 00:20 Etomidate 2 Mg/Ml 20 Ml Sdv IVPUSH 12/27/20 00:21 .STK-MED ONE Hydromorphone HCl 0.5 mg 12/26/20 20:22 12/26/20 20:28 Hydromorphone 0.5 Mg/0.5 Ml Syringe IVPUSH 12/26/20 20:23 0.5 mg ONETIME ONE Administration Sodium Chloride 100 mls @ 60 mls/min 12/26/20 19:15 12/26/20 19:32 Normal Saline IV 60 mls/min ASDIRECTED MARII Administration Nitroglycerin/Dextrose 25 mg in 250 mls @ 3 mls/hr 12/26/20 20:00 12/26/20 19:58 Nitroglycerin 25 Mg/D5w 250 Ml IV 5 mcg/min TITRATE MARII 3 mls/hr Administration Protocol 5 MCG/MIN Propofol Confirm 12/26/20 23:11 12/27/20 00:19 Diprivan 100 Ml Administered 12/26/20 23:12 Not Given Dose 100 mls @ as directed .ROUTE .STK-MED ONE Propofol 100 mls @ 1.864 mls/hr 12/26/20 23:45 12/27/20 00:10 Diprivan 100 Ml IV 50 mcg/kg/min TITRATE MARII 18.643 mls/hr Titration Protocol 5 MCG/KG/MIN Iopamidol 100 ml 12/26/20 19:14 12/26/20 19:32 Iopamidol 755 Mg/Ml 100 Ml Bottle IVPUSH 12/26/20 19:15 100 ml ONETIME ONE Administration Labetalol HCl 20 mg 12/26/20 23:36 12/27/20 00:30 Labetalol 100 Mg/20 Ml Mdv IVPUSH 12/26/20 23:37 20 mg ONETIME ONE Administration Protocol Lorazepam 1 mg 12/26/20 22:21 12/26/20 22:27 Lorazepam 2 Mg/Ml Sdv IVPUSH 12/26/20 22:22 1 mg ONETIME ONE Administration Nitroglycerin 0.4 mg 12/26/20 18:21 12/26/20 19:47 Nitroglycerin 0.4 Mg Tab.Sl SL 0.4 mg Q5M PRN Administration Chest Pain Rocuronium [place] 60 mg 12/27/20 00:17 12/27/20 00:10 Rocuronium 50 Mg/5 Ml Vial IVPUSH 12/27/20 00:18 60 mg ONETIME ONE Administration Sodium Chloride 10 ml 12/26/20 18:02 12/26/20 19:32 Sodium Chloride 0.9% 10 Ml Syringe FLUSH 10 ml ASDIRECTED PRN Administration Keep Vein Open Sodium Chloride 10 ml 12/26/20 19:14 12/26/20 19:47 Sodium Chloride 0.9% 10 Ml Sdv FLUSH 12/26/20 19:15 10 ml ONETIME ONE Administration Succinylcholine Chloride 200 mg 12/27/20 00:20 Succinylcholine 200 Mg/10 Ml Mdv .ROUTE 12/27/20 00:21 .[facility] ONE - Re-Assessments/Exams Free Text/Narrative Re-Assessment/Exam: Patient is a 55-year-old female presenting to the emergency department with complaints rest of the worsening shortness of breath as well as intermittent chest pains. She is a history of TN with 2 stents placed in 2019. She has taken numerous doses of baby aspirin throughout the day, therefore I will not order this at this time. She is on Prasugrel. Has been prescribed nitro sublingual in the past she is out of this, therefore she did not take any of this today. On exam, she has significantly diminished breath sounds with occasional faint expiratory wheeze. She is a 48-azfo-mudt smoker but has never been formally diagnosed with COPD. Denies any known history of heart failure. She has been having numbness, pain, and swelling to her left foot and ankle which she states was diagnosed to be peripheral vascular disease. On arrival to ER, oxygen saturations were 86% on room air. She is currently on 3 L of oxygen saturating in the mid 90s. I have ordered blood work, chest x-ray, EKG.. I will give DuoNeb breathing treatment as well as sublingual nitroglycerin. 12/26/20 19:05 Patient had relief of chest pain after 2 sublingual nitro. Reports her shortness of breath has improved. Currently saturating 97% on 3 L of oxygen by nasal cannula. Hematology is significant for WBC is elevated at 17.78, hemoglobin 6.8, platelets 876, D-dimer 3.01, potassium 3.4, this anion gap 17.4, troponin 0 0.198, CRP 1.1, proBNP 3561. EKG shows diffuse ST depression. Chest xray shows changes consistent with CHF. Review of patient's previous visits show a very similar presentation in June of last year. At that time her hemoglobin was low at 7.1. Troponin was also elevated and presentation was for shortness of breath. She reports after being sent to [facility], she had colonoscopy completed with numerous areas cauterized. She has not followed up with general surgery since that occurrence. She denies any jose red blood or black stools. Rectal exam completed and stool is heme-negative. I have ordered type and screen as well as crossmatch for 2 units. I will complete a CT angiogram of the chest to rule out PE and plan to contact tertiary care facility in [place] to arrange for transfer. 12/26/20 19:33 Call placed to [facility] one call nurse. They are checking if they have availability to accept patient and will call me back. 12/26/20 19:43 Spoke with one call nurse at [facility] in [place]. They unfortunately have no beds available to accept the patient for transfer. I will await call from [facility]. Patient is resting comfortably and is chest pain-free at this time. 12/26/20 20:09 [facility] called back and unfortunately not have any beds available. Called [facility] and spoke with transfer physician, Dr. Flores. She has accepted patient for transfer. Patient did have recurrence of chest pain which didn't not respond to 1 sublingual nitro. Case discussed with ER physician, Dr. Balbuena. He recommended Nitro drip be started. He will assumed care and disposition of patient until she is able to transfer out due to end of shift. First unit of blood is being started now. Departure - Departure Time of Disposition: 20:10 Condition: Good Sepsis Event Note (ED) - Evaluation Sepsis Screening Result: No Definite Risk - My Orders Last 24 Hours: My Active Orders 12/26/20 18:02 Peripheral IV Insertion Adult [OM.PC] Stat 12/26/20 19:31 Transfuse RBC [Transfuse Red Blood Cells] [COMM] Routine - Assessment/Plan Last 24 Hours: My Active Orders 12/26/20 18:02 Peripheral IV Insertion Adult [OM.PC] Stat 12/26/20 19:31 Transfuse RBC [Transfuse Red Blood Cells] [COMM] Routine
[2020-12-26] MEDS: Nitroglycerin 0.4 MG Tab.SL SL PRN ×3 (18:26→19:47)
--- NOTE | 2020-12-26 18:59 | CR ---
Chest: Portable view of the chest was obtained. Comparison: Prior chest x-ray of 07/11/[address] study also performed on 07/11/20. Heart is enlarged. Lung markings are diffusely increased. Findings most likely represent moderate CHF if patient has correlating symptoms. No acute osseous abnormality is appreciated. Impression: 1. Findings suspicious for moderate CHF. Please correlate with the patient's symptoms. Diagnostic code #3
[2020-12-26] MEDS ORDERED: Iopamidol 755 Mg/ML 100 ML Bottle IVPUSH ONE (19:14)
[2020-12-26] MEDS ORDERED: Sodium Chloride 0.9% 10 ML SDV FLUSH ONE (19:14)
[2020-12-26] MEDS ORDERED: Sodium Chloride 0.9% 100 ML IV SCH (19:15)
--- NOTE | 2020-12-26 19:53 | CT ---
CT chest Technique: Multiple axial sections through the chest were obtained. Intravenous contrast was utilized. Study has been performed as a pulmonary angiogram protocol. Comparison: Prior chest CT angiogram study of 07/11/20. Findings: Pulmonary arteries are well opacified. No filling defects are seen to indicate pulmonary embolism. Thoracic aorta shows mild atherosclerotic calcification with no aneurysm. Scattered lymph nodes are seen within the mediastinum which remain stable from prior study. No axillary adenopathy is seen. Small bilateral pleural effusions are seen. Visualized abdominal structures show a nodule within the left adrenal gland which is stable. No other acute abnormality is seen. Patchy areas of increased density are seen within both upper and lower lungs. Hazy groundglass appearance is also noted within both lungs. Heart is enlarged. Bone window settings were reviewed which show no acute osseous finding. Impression: 1. No findings of pulmonary embolism. 2. Cardiomegaly, small bilateral pleural effusions and mild diffuse groundglass appearance. These findings are suspicious for CHF. Patchy areas of increased density are scattered within both sides of the chest. If patient is truly COVID negative, these densities could represent mild areas of early pulmonary edema. Please exclude any symptoms of multifocal infection. Diagnostic code #3
[2020-12-26] MEDS ORDERED: Nitroglycerin/D5W 25 MG/250 ML BOTTLE IV SCH (20:00)
[2020-12-26] MEDS ORDERED: HYDROmorphone 0.5 MG/0.5 ML Syringe IVPUSH ONE (20:22)
[2020-12-26] MEDS ORDERED: LORazepam 2 MG/ML SDV IVPUSH ONE (22:21)
[2020-12-26] MEDS ORDERED: propofoL 100 ML ONE (23:11)
[2020-12-26] MEDS ORDERED: Labetalol 100 MG/20 ML MDV IVPUSH ONE (23:36)
[2020-12-26] MEDS ORDERED: propofoL 100 ML IV SCH (23:45)
[2020-12-27] MEDS ORDERED: Rocuronium 50 MG/5 ML Vial IVPUSH ONE (00:17)
[2020-12-27] MEDS ORDERED: Succinylcholine 200 MG/10 ML MDV ONE (00:20)
[2020-12-27] MEDS ORDERED: Etomidate 2 MG/ML 20 ML SDV IVPUSH ONE (00:20)
--- NOTE | 2020-12-27 05:57 | CR ---
Chest: Portable view of the chest was obtained. Comparison: Prior chest x-ray performed earlier on the same day (6:16 PM) as well as prior chest CT study also performed earlier on the same day. Heart is enlarged. Upper mediastinum is normal. Diffuse increased pulmonary markings are seen. Endotracheal tube is seen which lies at the level of the lower clavicles above the meliton. Nasogastric tube courses off the inferior edge of the film into the area of the stomach. No discrete osseous finding is seen. Impression: 1. Satisfactory position of endotracheal tube. Nasogastric tube courses off the inferior edge of the film. 2. Heart size remains slightly enlarged with diffuse increased lung markings noted which are stable from prior studies. Diagnostic code #3
== END 2020-12-27 01:20 ==
LOC: JD.ED 17:46
DX: I21.4 Non-ST elevation (NSTEMI) myocardial infarction (principal); J96.01 Acute respiratory failure with hypoxia; D64.9 Anemia, unspecified; J81.1 Chronic pulmonary edema; R00.0 Tachycardia, unspecified; I25.10 Atherosclerotic heart disease of native coronary artery without angina pectoris; I10 Essential (primary) hypertension; I25.2 Old myocardial infarction; E66.9 Obesity, unspecified; Z68.26 Body mass index [BMI] 26.0-26.9, adult; Z72.0 Tobacco use; Z88.0 Allergy status to penicillin; Z79.01 Long term (current) use of anticoagulants; Z79.82 Long term (current) use of aspirin; Z79.899 Other long term (current) drug therapy; Z20.822 Contact with and (suspected) exposure to COVID-19; R06.02 Shortness of breath
CPT/HCPCS: 31500; 36415; 36430; 36600; 43752; 51702; 71045; 71275; 80053; 81001; 82803; 83735; 83880; 84484; 85014; 85018; 85025; 85379; 85610; 85730; 86140; 86850; 86900; 86901; 86922; 87635; 93005; 94640; 96365; 96366; 96375; 99285; A9270; J0330; J1170; J2060; J2704; J3490; P9016; Q9967; 93010; 99291; J7620-GY; U0002

== ENCOUNTER 2021-05-05 22:00 | Emergency (ER) | payer BC ==
[2021-05-05] MEDS ORDERED: Sodium Chloride 0.9% 10 ML Syringe FLUSH PRN (22:13)
[2021-05-05] MEDS ORDERED: Aspirin 81 MG Tab.Chew PO ONE (22:13)
[2021-05-05] MEDS ORDERED: Nitroglycerin 0.4 MG Tab.SL SL PRN (22:25)
[2021-05-05] MEDS ORDERED: Lactated Ringers 1,000 ML IV SCH (22:30)
[2021-05-05] MEDS ORDERED: Ondansetron 4 MG/2 ML SDV ONE (22:41)
[2021-05-05] MEDS ORDERED: Ondansetron 4 MG/2 ML SDV IVPUSH ONE (22:42)
[2021-05-05] MEDS: Potassium Chloride 10 MEQ in Premix Bag 1 BAG IV SCH (23:06)
[2021-05-05] MEDS ORDERED: Pantoprazole 40 MG Vial IVPUSH ONE (23:10)
[2021-05-05] MEDS ORDERED: Pantoprazole 80 MG in Sodium Chloride 0.9% 100 ML IV SCH (23:15)
[2021-05-05] MEDS ORDERED: fentaNYL 100 MCG/2 ML SDV IVPUSH ONE (23:44)
[2021-05-06] MEDS: Potassium Chloride 10 MEQ in Premix Bag 1 BAG IV SCH (00:46)
[2021-05-06] MEDS ORDERED: Potassium Chloride 10 MEQ in Premix Bag 1 BAG IV ONE (01:08)
== END 2021-05-06 00:38 ==
LOC: JD.ED 22:00
DX: I11.0 Hypertensive heart disease with heart failure (principal); I50.9 Heart failure, unspecified; N19 Unspecified kidney failure; E87.6 Hypokalemia; R77.8 Other specified abnormalities of plasma proteins; K92.2 Gastrointestinal hemorrhage, unspecified; I25.10 Atherosclerotic heart disease of native coronary artery without angina pectoris; I25.2 Old myocardial infarction; E66.9 Obesity, unspecified; Z68.1 Body mass index [BMI] 19.9 or less, adult; Z88.0 Allergy status to penicillin; Z79.82 Long term (current) use of aspirin; Z87.891 Personal history of nicotine dependence; Z20.822 Contact with and (suspected) exposure to COVID-19
CPT/HCPCS: 36415; 70450; 71045; 80053; 83735; 83880; 84484; 85025; 85379; 85610; 87635; 93005; 96365; 96366; 96368; 96375; 99285; A9270; C9113; J2405; J3010; J3480; J7120; 93010; J3490; U0002

== ENCOUNTER 2021-05-25 18:52 | Emergency (ER) | payer BC ==
[2021-05-25] MEDS ORDERED: Sodium Chloride 0.9% 10 ML Syringe FLUSH PRN (19:02)
[2021-05-25] MEDS ORDERED: Nitroglycerin/D5W 25 MG/250 ML BOTTLE IV SCH (19:15)
[2021-05-25] MEDS ORDERED: HYDROmorphone 0.5 MG/0.5 ML Syringe IVPUSH ONE (20:27)
== END 2021-05-26 00:35 ==
LOC: MERGE 18:52 → JD.ED 18:52
DX: R07.9 Chest pain, unspecified (principal); N17.9 Acute kidney failure, unspecified; D64.89 Other specified anemias; R77.8 Other specified abnormalities of plasma proteins; I25.2 Old myocardial infarction; I10 Essential (primary) hypertension; Z87.891 Personal history of nicotine dependence; Z88.0 Allergy status to penicillin; Z20.822 Contact with and (suspected) exposure to COVID-19; Z99.2 Dependence on renal dialysis
CPT/HCPCS: 36415; 71045; 80053; 84484; 85025; 86850; 86870; 86900; 86901; 86905; 87635; 93005; 96374; 96375; 99285; J1170; J3490; 86922; 93010; U0002

== ENCOUNTER 2021-06-15 20:47 | Emergency (ER) | payer BC ==
[2021-06-15] MEDS ORDERED: Ondansetron 4 MG/2 ML SDV IVPUSH ONE (21:19)
[2021-06-15] MEDS ORDERED: Sodium Chloride 0.9% 1,000 ML IV SCH (22:30)
[2021-06-16] MEDS ORDERED: Albuterol 6.7 GM Inhaler INH STA (00:26)
[2021-06-16] MEDS ORDERED: Loperamide 2 MG Cap PO STA (00:54)
== END 2021-06-16 01:17 | disposition home or self-care (01) ==
LOC: JD.ED 20:47
DX: K52.9 Noninfective gastroenteritis and colitis, unspecified (principal); I12.9 Hypertensive chronic kidney disease with stage 1 through stage 4 chronic kidney disease, or unspecified chronic kidney disease; N18.9 Chronic kidney disease, unspecified; I25.10 Atherosclerotic heart disease of native coronary artery without angina pectoris; I25.2 Old myocardial infarction; Z88.0 Allergy status to penicillin; Z79.899 Other long term (current) drug therapy; Z87.891 Personal history of nicotine dependence; Z20.822 Contact with and (suspected) exposure to COVID-19
CPT/HCPCS: 36415; 71045; 71275; 80053; 81001; 83605; 83690; 83735; 83880; 84484; 85007; 85027; 85379; 85610; 85730; 86140; 87635; 93005; 96374; 99285; A9270; J2405; 99284; U0002